=== PATIENT | male | born 1985 | race American Indian/Alaskan Native ===

== ENCOUNTER 2016-11-10 09:48 | Emergency (ER) | payer MEDICAID ==
[~2016-11-10 09:48] MED LIST: LISINOPRIL 10 MG TAB PO SCH
[2016-11-10 09:55] VITALS: TEMP 98.4
[2016-11-10] MEDS ORDERED: LISINOPRIL 20 MG TAB ONE (10:35)
--- NOTE | 2016-11-10 10:35 | EDPHY ---
H & P Time Seen by Provider: 11/10/16 09:56 HPI/ROS: CHIEF COMPLAINT: Medication refill, history of hypertension HISTORY OF PRESENT ILLNESS: 31-year-old male arrives via ambulance from [facility] where he was taken earlier today at approximately 3: 00 a.m.. He is in the emergency department for lisinopril 10 mg once daily refill. He has been out for approximately 6 days. He denies acute complaints. He denies: Chest pain, back pain, abdominal pain, nausea, vomiting, headache , urinary abnormality, hallucination, seizure PRIMARY CARE PROVIDER: REVIEW OF SYSTEMS: A ten point review of systems was performed and is negative with the exception of the items mentioned in the HPI PAST MEDICAL & SURGICAL HISTORY: Hypertension SOCIAL HISTORY: history of alcoholism. Receives the majority of his care at a [facility] near [place], [place] PHYSICAL EXAM (Prior to examination, patient consented to physical exam, hands were washed and my usual and customary physical exam procedures followed) 1) GENERAL: Well-developed, well-nourished, alert and oriented. Appears to be in no acute distress. 2) HEAD: Normocephalic, atraumatic 3) HEENT: Pupils equal, round, reactive to light bilaterally. Sclera anicteric. 4) NECK: Full range of motion, no meningeal signs. 5) LUNGS: Clear auscultation bilaterally, no wheezes, no rhonchi, no retractions. 6) HEART: Regular rate and rhythm, no murmur, no heave, no gallop. 7) ABDOMEN: No guarding, no rebound, no focal tenderness, 8) MUSCULOSKELETAL: Moving all extremities, no focal areas of tenderness, no obvious trauma. No peripheral edema or discoloration. 9) BACK: No CVA tenderness. 10) SKIN: No rash, no petechiae. 11) Psychiatric: Patient is oriented X 3, there is no agitation. DIFFERENTIAL DIAGNOSIS: in no particular include but limited to hypertension, hypertensive crisis, medication refill Smoking Status: Current some day smoker Constitutional: Initial Vital Signs Temperature (C) 36.9 C 11/10/16 09:51 Heart Rate 101 H 11/10/16 09:51 Respiratory Rate 16 11/10/16 09:51 Blood Pressure 172/109 H 11/10/16 09:51 O2 Sat (%) 97 11/10/16 09:51 O2 Delivery Mode Room Air Allergies/Adverse Reactions: No Known Allergies Allergy (Verified 09/08/16 03:54) Home Medications: Medication Instructions Recorded Multivitamins [Multivitamin (*)] 1 each PO DAILY 02/21/16 Aspirin [Aspirin 81mg (*)] 81 mg PO DAILY #0 tab.chew 02/23/16 Metoprolol Tartrate [Lopressor 25 25 mg PO BID #60 tab 02/23/16 mg (*)] Lisinopril 10 mg PO DAILY #30 tablet 11/10/16 MDM/Departure - [facility] ED Course/Re-evaluation: This patient is asymptomatic. He is in the emergency department for refill of his lisinopril 10 mg once daily. He has been given a 30 day supply of this and given [facility] follow-up information and strongly recommended he follow up and establish care at the [facility]. - Depart Disposition: Home, Routine, Self-Care Clinical Impression: Encounter for medication refill, History of hypertension in sibling Condition: Good Instructions: Hypertension (ED) Prescriptions: Lisinopril 10 mg PO DAILY #30 tablet Referrals: [facility] [Outside] - 1-2 days without fail
[2016-11-10] MEDS ORDERED: CHLORDIAZEPOXIDE 25MG PREPK#6 BTL TAKEHOME ONE (11:53)
[2016-11-10] MEDS ORDERED: chlordiazePOXIDE 25 MG CAP PO ONE (11:53)
[2016-11-10 12:05] VITALS: BP 163/99; PULSE 103; RESP 18; O2SAT 94
[2016-11-11] MEDS ORDERED: LISINOPRIL 10 MG TAB PO ONE (09:57)
== END 2016-11-10 12:41 | disposition home or self-care (01) ==
LOC: EDUNIT#
DX: Z76.0 Encounter for issue of repeat prescription (principal); I10 Essential (primary) hypertension; F17.200 Nicotine dependence, unspecified, uncomplicated; Z79.82 Long term (current) use of aspirin

== ENCOUNTER 2016-11-14 07:29 | Emergency (ER) | payer MEDICAID ==
--- NOTE | 2016-11-14 08:24 | EDPHY ---
H & P Time Seen by Provider: 11/14/16 08:15 HPI/ROS: CHIEF COMPLAINT: Alcohol intoxication. Limitations: Obtundation HISTORY OF PRESENT ILLNESS: The patient is a 31 year old male with history of alcohol abuse, presenting with alcohol intoxication. [facility] and this morning they could not wake him up so EMS was called. According to the paramedics, his blood sugar was 29 prior to arrival. No dextrose was given. The patient is well known to this ED for alcohol intoxication. He was brought in on an [facility] hold. REVIEW OF SYSTEMS: Unable to obtain Past Medical/Surgical History: Alcoholism Social History: Homeless, Heavy alcohol use. Smoking Status: Current some day smoker Physical Exam: General Appearance: Asleep and snoring, Groans to sternal rub Eyes: Disconjugate gaze, Pinpoint pupils ENT, Mouth: Mucous membranes moist Neck: Normal inspection Respiratory: Lungs are clear to auscultation Cardiovascular: Regular rate and rhythm Gastrointestinal: Abdomen is soft and non-tender Neurological: Obtunded, Groans to sternal rub Skin: Warm and dry Extremities: Normal inspection Psychiatric: Unable to assess Constitutional: Initial Vital Signs Temperature (C) 36.8 C 11/14/16 07:35 Heart Rate 84 11/14/16 07:35 Respiratory Rate 16 11/14/16 07:35 Blood Pressure 138/89 H 11/14/16 07:35 O2 Sat (%) 96 11/14/16 07:35 O2 Delivery Mode Room Air O2 (L/minute) 2 Allergies/Adverse Reactions: No Known Allergies Allergy (Verified 11/14/16 07:39) Home Medications: Medication Instructions Recorded Multivitamins [Multivitamin (*)] 1 each PO DAILY 02/21/16 Aspirin [Aspirin 81mg (*)] 81 mg PO DAILY #0 tab.chew 02/23/16 Metoprolol Tartrate [Lopressor 25 25 mg PO BID #60 tab 02/23/16 mg (*)] Lisinopril 10 mg PO DAILY #30 tablet 11/10/16 Medical Decision Making ED Course/Re-evaluation: Patient presents with alcohol intoxication. Repeat blood sugar on arrival is 119, so it is unclear whether he was actually hypoglycemic prior to arrival, since he did not receive glucose. Oxygen saturation while asleep is 86% on room air. Oxygen was placed and his repeat oxygen saturation was 96%. Eventually, this pt was able to walk with a steady gait and speech was normal. Sent to the [facility] via PD. - Data Points Laboratory Results: Laboratory Results 11/14/16 07:38 Departure - Departure Disposition: Home, Routine, Self-Care Clinical Impression: Alcohol intoxication Qualifiers: Complication of substance-induced condition: uncomplicated Qualifier Code: ( F10.120) Alcohol abuse with intoxication, uncomplicated Condition: Good Instructions: Alcohol Intoxication (ED), Abuse of Alcohol (ED) Referrals: [facility] [Outside] - As per Instructions Report Scribed for: Nohelia Shen Report Scribed by: Laura Gavin Date of Report: 11/14/16 Time of Report: 08:23 Physician Review and Approval Statement: 11/14/16 08:23 Portions of this note were transcribed by a medical editor. I personally performed the history, physical exam, and medical decision-making; and confirmed the accuracy of the information in the transcribed note.
[2016-11-14 08:37] LABS: ANION GAP 15 mEq/L (8-16); CALCIUM 8.2 mg/dL (8.5-10.4); CARBON DIOXIDE 25 mEq/l (22-31); CHLORIDE 109 mEq/L (97-110); CREATININE 1.1 mg/dL (0.7-1.3); GLOMERULAR FILTRATION RATE > 60; GLUCOSE 111 mg/dL (70-100); POTASSIUM 3.7 mEq/L (3.5-5.2); SODIUM 149 mEq/L (134-144)
[2016-11-14 09:24] LABS: ETHANOL SERUM 345 mg/dL (0-10)
[2016-11-14 11:46] VITALS: BP 108/60; PULSE 98; RESP 18; TEMP 98.1; O2SAT 93
== END 2016-11-14 12:29 | disposition home or self-care (01) ==
LOC: EDUNIT#
DX: F10.120 Alcohol abuse with intoxication, uncomplicated (principal); F17.200 Nicotine dependence, unspecified, uncomplicated; Z79.82 Long term (current) use of aspirin
CPT/HCPCS: 82947-QW; G0480

== ENCOUNTER 2016-11-21 00:40 | Emergency (ER) | payer MEDICAID ==
[2016-11-21 00:46] VITALS: RESP 16; TEMP 97.5
--- NOTE | 2016-11-21 01:02 | EDPHY ---
H & P Stated Complaint: DIFFICULT TO WAKE AT [facility] - Personal History Current Tetanus Diphtheria and Acellular Pertussis (TDAP): Unsure - Medical/Surgical History Hx Asthma: No Hx Chronic Respiratory Disease: No Hx Diabetes: No Hx Cardiac Disease: Yes Hx Renal Disease: No Hx Cirrhosis: No Hx Alcoholism: Yes Hx HIV/AIDS: No Hx Splenectomy or Spleen Trauma: No Other PMH: Atrial fibrillation/flutter, withdrawal seizures, alcoholism, tib fib fracture, kidney laceration, broken ribs and pneumo 2014. HTN - Social History Smoking Status: Current some day smoker HPI/ROS: CHIEF COMPLAINT: Difficult to wake HISTORY OF PRESENT ILLNESS: patient is an alcoholic who [facility], when someone felt that he was very difficult to awake. He is well known in this facility as he is seen frequently for alcohol intoxication. He denies any complaints of any kind. He is not providing any history but says he just wants to sleep. He will not answer any of my specific review of systems questions. Reportedly from staff to bystanders, he drinks heavily to the point that he desaturates when he falls asleep. When he awakes, his oxygenation is well within normal limits. No modifying factors or associated complaints obtainable from him at this time. REVIEW OF SYSTEMS: Ten systems reviewed and are negative unless otherwise noted in the HPI EXAMINATION General Appearance: Somnolent but awakes with minimal stimulus. odor of alcohol Head: normocephalic, atraumatic Eyes: Pupils equal and round, conjunctival injection that is mild. Will not cooperate with me to test EOMs ENT, Mouth: Mucous membranes moist Neck: Normal inspection, supple. Will not cooperate with range of motion testing Respiratory: Lungs are clear to auscultation. No consolidation. Cardiovascular: Regular rate and rhythm Gastrointestinal: Abdomen is soft and nontender Neurological: Alert to person. He will not answer my questions otherwise. No seizure activity noted Skin: Warm and dry, no rash Extremities: Nontender, no pedal edema DIFFERENTIAL DIAGNOSES: Including but not limited to acute alcohol intoxication, sleep apnea, somnolent hypoxia, alcoholism. MDM: Reported chronic alcoholic who desaturates when he falls asleep. Patient is usually waking to minimal verbal stimuli. When he awaits his oxygenation is well within normal limits. We are monitoring him closely as he has no other complaints. 0115 At this time, Dr. Riguzzi will assume care of the patient. Please see her note for final disposition. SUPERVISION: Patient was evaluated in conjunction with the supervising physician. Please see their note for details. (Marquis Durham) Constitutional: Initial Vital Signs Temperature (C) 36.4 C 11/21/16 00:43 Heart Rate 63 11/21/16 00:43 Respiratory Rate 16 11/21/16 00:43 Blood Pressure 134/92 H 11/21/16 00:43 O2 Sat (%) 96 11/21/16 00:43 O2 Delivery Mode Nasal Cannula O2 (L/minute) 2 Allergies/Adverse Reactions: No Known Allergies Allergy (Verified 11/14/16 07:39) Home Medications: Medication Instructions Recorded Multivitamins [Multivitamin (*)] 1 each PO DAILY 02/21/16 Aspirin [Aspirin 81mg (*)] 81 mg PO DAILY #0 tab.chew 02/23/16 Metoprolol Tartrate [Lopressor 25 25 mg PO BID #60 tab 02/23/16 mg (*)] Lisinopril 10 mg PO DAILY #30 tablet 11/10/16 Medical Decision Making ED Course/Re-evaluation: PHYSICIAN DOCUMENTATION: The patient was evaluated and managed by the Physician Brake Rider. My co- signature indicates that I have reviewed this chart and I agree with the findings and plan of care as documented. I am the secondary supervising physician. (Lauren De La Rosa) Departure - Departure Disposition: Home, Routine, Self-Care Clinical Impression: Acute alcohol intoxication, Chronic alcohol abuse, Hypoxia, sleep related Condition: Good Referrals: Patient,NotPresent [Unknown] - As per Instructions
[2016-11-21 06:25] VITALS: BP 132/78; PULSE 67; O2SAT 93
== END 2016-11-21 07:25 | disposition home or self-care (01) ==
LOC: EDUNIT#
DX: F10.129 Alcohol abuse with intoxication, unspecified (principal); G47.36 Sleep related hypoventilation in conditions classified elsewhere; I10 Essential (primary) hypertension; F17.200 Nicotine dependence, unspecified, uncomplicated; Z79.82 Long term (current) use of aspirin

== ENCOUNTER 2016-11-24 02:48 | Emergency (ER) | payer MEDICAID ==
--- NOTE | 2016-11-24 02:55 | EDPHY ---
H & P HPI/ROS: HPI CHIEF COMPLAINT: Alcohol intoxication HISTORY OF PRESENT ILLNESS: this patient is a 31-year-old male presents to the emergency room by EMS do sound intoxicated walking around the street in the cold. Very familiar with this patient is often in the emergency room he does have a history of alcoholism and alcohol withdrawal he tells me tonight he has been drinking large amount of vodka. He does time he feels intoxicated. EMS make contact with the patient as he was walking around the streets yelling. No reported trauma. Upon arrival here in the emergency room he does smell of alcohol use slurring his speech he is resting comfortably no complaints. Past Medical History:Alcohol withdrawal, AFib, low-sodium, hypokalemia Social History: Daily use of alcohol, homeless Family History: noncontributory ROS REVIEW OF SYSTEMS: A comprehensive 10 point review of systems is otherwise negative aside from elements mentioned in the history of present illness. Exam Constitutional appears well nontoxic, intoxicated with alcohol, triage nursing summary reviewed, vital signs reviewed, awake/alert. Eyes normal conjunctivae and sclera, EOMI, PERRLA. HENT normal inspection, atraumatic, moist mucus membranes, no epistaxis, neck supple/ no meningismus, no raccoon eyes. Respiratory clear to auscultation bilaterally, normal breath sounds, no respiratory distress, no wheezing. Cardiovascular rate normal, regular rhythm, no murmur, no edema, distal pulses normal. Gastrointestinal soft, non-tender, no rebound, no guarding, normal bowel sounds, no distension, no pulsatile mass. Genitourinary no CVA tenderness. Musculoskeletal no midline vertebral tenderness, full range of motion, no calf swelling, no tenderness of extremities, no meningismus, good pulses, neurovascularly intact. Skin pink, warm, & dry, no rash, skin atraumatic. Neurologic slurring speech awake, alert and oriented x 3, AAOx3, moves all 4 extremities equally, motor intact, sensory intact, CN II-XII intact, normal cerebellar, normal vision Psychiatric normal mood/affect. Heme/Lymph/Immune no lymphadenopathy. Differential Diagnosis: Includes but is not limited to in a particular order acute alcohol intoxication, cold exposure, dehydration Medical Decision Making: This patient appears well nontoxic no acute distress resting comfortably he will have a breath alcohol and we will monitor for sobriety. No evidence of trauma on exam. Re-evaluation: 0307: breath alcohol at this time 393. 0552: re-examination at this time he is sleeping or resting comfortably once awoke he has no complaints. He will be discharged to the [facility]. He is clinically sober stable gait and no focal complaints. He is agreeable for disposition to the [facility] Source: Patient, EMS - Medical/Surgical History Hx Asthma: No Hx Chronic Respiratory Disease: No Hx Diabetes: No Hx Cardiac Disease: Yes Hx Renal Disease: No Hx Cirrhosis: No Hx Alcoholism: Yes Hx HIV/AIDS: No Hx Splenectomy or Spleen Trauma: No Other PMH: Atrial fibrillation/flutter, withdrawal seizures, alcoholism, tib fib fracture, kidney laceration, broken ribs and pneumo 2014. HTN - Social History Smoking Status: Current some day smoker Constitutional: Initial Vital Signs Temperature (C) 36.5 C 11/24/16 02:56 Heart Rate 73 11/24/16 02:56 Respiratory Rate 16 11/24/16 02:56 Blood Pressure 116/75 11/24/16 02:56 O2 Sat (%) 95 11/24/16 02:56 O2 Delivery Mode Nasal Cannula O2 (L/minute) 2 Allergies/Adverse Reactions: No Known Allergies Allergy (Verified 11/24/16 02:58) Home Medications: Medication Instructions Recorded Multivitamins [Multivitamin (*)] 1 each PO DAILY 02/21/16 Aspirin [Aspirin 81mg (*)] 81 mg PO DAILY #0 tab.chew 02/23/16 Metoprolol Tartrate [Lopressor 25 25 mg PO BID #60 tab 02/23/16 mg (*)] Lisinopril 10 mg PO DAILY #30 tablet 11/10/16 Departure - Departure Disposition: Home, Routine, Self-Care Clinical Impression: Alcohol intoxication Qualifiers: Complication of substance-induced condition: uncomplicated Qualifier Code: ( F10.120) Alcohol abuse with intoxication, uncomplicated Condition: Good Instructions: Abuse of Alcohol (ED), Alcohol Intoxication (ED) Referrals: NONE *PRIMARY CARE P,. [Primary Care Provider] - As per Instructions
[2016-11-24 03:09] VITALS: TEMP 97.7
[2016-11-24 06:25] VITALS: BP 102/68; PULSE 84; RESP 16; O2SAT 93
== END 2016-11-24 07:35 | disposition home or self-care (01) ==
LOC: EDUNIT#
DX: F10.120 Alcohol abuse with intoxication, uncomplicated (principal); I10 Essential (primary) hypertension; F17.200 Nicotine dependence, unspecified, uncomplicated; Z79.82 Long term (current) use of aspirin

== ENCOUNTER 2016-11-26 23:59 | Emergency (ER) | payer MEDICAID ==
[2016-11-27 00:16] VITALS: RESP 16
--- NOTE | 2016-11-27 00:44 | EDPHY ---
H & P Stated Complaint: DIFFICULT TO WAKE AT [facility], LOW SAT ON RA Time Seen by Provider: 11/27/16 00:40 HPI/ROS: HPI The patient presents with alcohol intoxication brought in by ambulance from the [facility] because he was difficult to arouse with a low oxygen saturation. He was seen here just 2 days ago for similar and I saw him last week with a similar presentation. The patient denies any current complaints.. REVIEW OF SYSTEMS Constitutional: No fever, no chills. Eyes: No discharge. ENT: No sore throat. Cardiovascular: No chest pain, no palpitations. Respiratory: No cough, no shortness of breath. Gastrointestinal: No abdominal pain, no vomiting. Genitourinary: No hematuria. Musculoskeletal: No back pain. Skin: No rashes. Neurological: No headache. PMHx: Alcohol abuse, history of atrial fibrillation Soc Hx: alcohol PHYSICAL General Appearance: Apparently intoxicated Eyes: Pupils equal and round no pallor or injection ENT, Mouth: Mucous membranes moist Respiratory: There are no retractions, lungs are clear to auscultation Cardiovascular: Regular rate and rhythm Gastrointestinal: Abdomen is soft and non-tender, no masses, bowel sounds normal Neurological: A&O, moves all extremities Skin: Warm and dry, no rashes Musculoskeletal: Neck is supple non tender Extremities: symmetrical, full range of motion Psychiatric: No agitation Source: Patient Exam Limitations: No limitations - Personal History Current Tetanus Diphtheria and Acellular Pertussis (TDAP): Unsure - Medical/Surgical History Hx Asthma: No Hx Chronic Respiratory Disease: No Hx Diabetes: No Hx Cardiac Disease: Yes Hx Renal Disease: No Hx Cirrhosis: No Hx Alcoholism: Yes Hx HIV/AIDS: No Hx Splenectomy or Spleen Trauma: No Other PMH: Atrial fibrillation/flutter, withdrawal seizures, alcoholism, tib fib fracture, kidney laceration, broken ribs and pneumo 2014. HTN - Social History Smoking Status: Current some day smoker Constitutional: Initial Vital Signs Temperature (C) 36.7 C 11/27/16 00:00 Heart Rate 101 H 11/27/16 00:00 Respiratory Rate 16 11/27/16 00:00 Blood Pressure 137/88 H 11/27/16 00:00 O2 Sat (%) 90 L 11/27/16 00:00 O2 Delivery Mode Room Air O2 (L/minute) 2 Allergies/Adverse Reactions: No Known Allergies Allergy (Verified 11/24/16 02:58) Home Medications: Medication Instructions Recorded Multivitamins [Multivitamin (*)] 1 each PO DAILY 02/21/16 Aspirin [Aspirin 81mg (*)] 81 mg PO DAILY #0 tab.chew 02/23/16 Metoprolol Tartrate [Lopressor 25 25 mg PO BID #60 tab 02/23/16 mg (*)] Lisinopril 10 mg PO DAILY #30 tablet 11/10/16 Medical Decision Making ED Course/Re-evaluation: 12:40 a.m.- Initial patient encounter. He is sleeping heavily in a hallway bed on the monitor with supplemental nasal cannula currently. We will continue to monitor him. 2:00 a.m.- Patient is still sleeping soundly. We will continue to monitor. 5:20 a.m.- The patient is now more awake and alert. He is able to ambulate. [facility]. Differential Diagnosis: This is a 31-year-old male with history of chronic alcohol abuse, frequent ER visits who is coming in from the [facility] for low oxygen saturations and difficult to arouse state. He has had several similar presentations and likely has some FREDI contributing to his hypoxia. I doubt pneumonia or bronchitis, however I will re-evaluate him if his saturations do not improve as he metabolize his alcohol, further evaluation will occur. Departure - Departure Disposition: Home, Routine, Self-Care Clinical Impression: Alcohol intoxication Condition: Good Instructions: Alcohol Intoxication (ED) Referrals: [facility] [Outside] - As per Instructions
[2016-11-27 02:00] VITALS: O2SAT 92
[2016-11-27 05:41] VITALS: BP 144/74; PULSE 81; TEMP 97.9
== END 2016-11-27 05:40 | disposition home or self-care (01) ==
LOC: EDUNIT#
DX: F10.129 Alcohol abuse with intoxication, unspecified (principal); I10 Essential (primary) hypertension; F17.200 Nicotine dependence, unspecified, uncomplicated; Z79.82 Long term (current) use of aspirin

== ENCOUNTER 2017-01-13 13:54 | Emergency (ER) | payer MEDICAID ==
--- NOTE | 2017-01-13 14:00 | EDPHY ---
H & P Time Seen by Provider: 01/13/17 13:56 HPI/ROS: CHIEF COMPLAINT: Suspected alcohol intoxication HISTORY OF PRESENT ILLNESS: 31-year-old homeless male arrives via ambulance [facility] an [facility] hold after he was found sleeping on the side of the road. No reports of trauma or fall. Smells of alcohol. According to law enforcement the patient has been sent to the [facility] for the past 2 days. Patient has no complaints of pain or discomfort. No seizure. No hallucination. REVIEW OF SYSTEMS: A ten point review of systems was performed and is negative with the exception of the items mentioned in the HPI PAST MEDICAL & SURGICAL HISTORY: alcohol abuse history SOCIAL HISTORY:positive alcohol use PHYSICAL EXAM (Prior to examination, patient consented to physical exam, hands were washed and my usual and customary physical exam procedures followed) 1) GENERAL: poorly kept, smells of alcohol 2) HEAD: Normocephalic, atraumatic 3) HEENT: Pupils equal, round, reactive to light bilaterally. Sclera anicteric. No oral trauma 4) NECK: Full range of motion, no meningeal signs. 5) LUNGS: Clear auscultation bilaterally, no wheezes, no rhonchi, no retractions. 6) HEART: Regular rate and rhythm, no murmur, no heave, no gallop. 7) ABDOMEN: No guarding, no rebound, no focal tenderness, 8) MUSCULOSKELETAL: Moving all extremities, no focal areas of tenderness, no obvious trauma. No peripheral edema or discoloration. 9) BACK: Nno midline vertebral tenderness, no fluctuance, no step-off, no obvious trauma, no visual or palpable abnormality. 10) SKIN: No rash, no petechiae. 11) Psychiatric: Patient is oriented X 3, there is no agitation. DIFFERENTIAL DIAGNOSIS: no particular include but not limited to acute alcohol intoxication, delirium tremens, alcohol withdrawal - Medical/Surgical History Hx Asthma: No Hx Chronic Respiratory Disease: No Hx Diabetes: No Hx Cardiac Disease: Yes Hx Renal Disease: No Hx Cirrhosis: No Hx Alcoholism: Yes Hx HIV/AIDS: No Hx Splenectomy or Spleen Trauma: No Other PMH: Atrial fibrillation/flutter, withdrawal seizures, alcoholism, tib fib fracture, kidney laceration, broken ribs and pneumo 2014. HTN - Social History Smoking Status: Current some day smoker Constitutional: Initial Vital Signs Temperature (C) 36.6 C 01/13/17 14:00 Heart Rate 77 01/13/17 14:00 Respiratory Rate 16 01/13/17 14:00 Blood Pressure 123/71 H 01/13/17 14:00 O2 Sat (%) 97 01/13/17 14:00 O2 Delivery Mode Nasal Cannula O2 (L/minute) 4 Allergies/Adverse Reactions: No Known Allergies Allergy (Verified 11/24/16 02:58) Home Medications: Medication Instructions Recorded Multivitamins [Multivitamin (*)] 1 each PO DAILY 02/21/16 Aspirin [Aspirin 81mg (*)] 81 mg PO DAILY #0 tab.chew 02/23/16 Metoprolol Tartrate [Lopressor 25 25 mg PO BID #60 tab 02/23/16 mg (*)] Lisinopril 10 mg PO DAILY #30 tablet 11/10/16 Medical Decision Making ED Course/Re-evaluation: 6:05 p.m.: At this time the patient is ambulatory without assistance stable steady gait clear speech pattern awake alert oriented person place time events. [facility] - Data Points Laboratory Results: 01/13/17 14:00 Ethyl Alcohol 484 mg/dL H* mg/dL (0-10) Departure - Departure Disposition: Home, Routine, Self-Care Clinical Impression: Alcohol intoxication Qualifiers: Complication of substance-induced condition: uncomplicated Qualified Code(s): F10.120 - Alcohol abuse with intoxication, uncomplicated Condition: Good Instructions: Alcohol Intoxication (ED) Referrals: [facility] [Outside] - 1 day without fail
[2017-01-13 14:07] VITALS: RESP 16; TEMP 97.9
[2017-01-13 14:42] LABS: ETHANOL SERUM 484 mg/dL (0-10)
[2017-01-13 18:18] VITALS: BP 115/75; PULSE 74; O2SAT 92
== END 2017-01-13 18:56 | disposition home or self-care (01) ==
LOC: EDUNIT#
DX: F10.120 Alcohol abuse with intoxication, uncomplicated (principal); I10 Essential (primary) hypertension; F17.200 Nicotine dependence, unspecified, uncomplicated; Z79.82 Long term (current) use of aspirin
CPT/HCPCS: G0480

== ENCOUNTER 2017-02-04 16:17 | Emergency (ER) | payer MEDICAID ==
[2017-02-04 16:30] LABS: % IMMATURE GRANULYOCYTES 1.6 % (0.0-1.1); ADD DIFF? NO; ADD MORPH? NO; ADD SCAN? NO; ATYPICAL LYMPHOCYTE FLAG 20 (0-99); FRAGMENT RBC FLAG 0 (0-99); HEMATOCRIT 45.8 % (40.0-51.0); HEMOGLOBIN 14.9 g/dL (13.7-17.5); LEFT SHIFT FLG 10 (0-99); LIPEMIA HEMOLYSIS FLAG 80 (0-99); MEAN CELL HEMOGLOBIN 30.2 pg (27.9-34.1); MEAN CELL HEMOGLOBIN CONCENTR. 32.5 g/dL (32.4-36.7); MEAN CELL VOLUME 92.9 fL (81.5-99.8); MEAN PLATELET VOLUME 9.8 fL (8.7-11.7); PLATELET CLUMPS FLAG 10 (0-99); PLATELET COUNT 262 10^3/uL (150-400); RED BLOOD CELL COUNT 4.93 10^6/uL (4.40-6.38)
--- NOTE | 2017-02-04 16:38 | CPEKG ---
Heart Rate: 67 RR Interval: 896 P-R Interval: 172 QRSD Interval: 100 QT Interval: 408 QTC Interval: 431 P [place]: 50 QRS [place]: 12 T Wave [place]: 17 EKG Severity - ABNORMAL ECG - EKG Impression: SINUS RHYTHM EKG Impression: ST ELEVATION SUGGESTS PERICARDITIS Electronically Signed By: Kenton Luis 04-Feb-2017 21:22:23
[2017-02-04] MEDS ORDERED: NS 1,000 ML IV ONE ×2 (16:44→17:42)
[2017-02-04 16:48] LABS: HEMATOCRIT 45.8 % (40.0-51.0)
[2017-02-04 16:49] LABS: ANION GAP 15 mEq/L (8-16); CARBON DIOXIDE 23 mEq/l (22-31); CHLORIDE 111 mEq/L (97-110); CREATININE 0.8 mg/dL (0.7-1.3); GLOMERULAR FILTRATION RATE > 60; GLUCOSE 89 mg/dL (70-100); MAGNESIUM 2.2 mg/dL (1.6-2.3); POTASSIUM 4.2 mEq/L (3.5-5.2); SODIUM 149 mEq/L (134-144)
--- NOTE | 2017-02-04 16:50 | EDPHY ---
H & P Stated Complaint: ETOH Source: EMS, Old records Exam Limitations: Intoxication - Personal History Current Tetanus Diphtheria and Acellular Pertussis (TDAP): Yes - Medical/Surgical History Hx Asthma: No Hx Chronic Respiratory Disease: No Hx Diabetes: No Hx Cardiac Disease: Yes Hx Renal Disease: No Hx Cirrhosis: No Hx Alcoholism: Yes Hx HIV/AIDS: No Hx Splenectomy or Spleen Trauma: No Other PMH: Atrial fibrillation/flutter, withdrawal seizures, alcoholism, tib fib fracture, kidney laceration, broken ribs and pneumo 2014. HTN - Family History Significant Family History: Other (Unknown) - Social History Smoking Status: Current some day smoker Alcohol Use: Heavy Drug Use: Other (Unknown) Time Seen by Provider: 02/04/17 16:25 HPI/ROS: HPI: 31-year-old male presents to emergency department brought in by EMS found down 30 minutes prior to arrival. 0.4 mg Narcan was given in the field with no response. Patient responsive to painful stimulus only. This homeless gentleman is well known to the emergency department. Past medical history significant for atrial fib and flutter, alcohol abuse, ETOH withdrawal, ETOH withdrawal seizure, kidney laceration, broken ribs, pneumothorax, hypertension. Unable to perform the duration of HPI due to his mental status. ROS: Unable to perform due to mental status (Mariam Mistry) - Social History Additional Social History: Transient (Mariam Mistry) - Physical Exam Exam: Vital signs stable, reviewed by me General: Awakens to painful stimulus only. Head: Atraumatic, normalocephalic Face: Atraumatic EENT: PERRLA. Left pupil 5+, right pupil 3+. EOMI. No papilledema. no conjunctival injection or hemorrhage. TMs intact, translucent. No evidence of bleeding or otorrhea. Nasal septum midline, nasal mucosa pink. no evidence of drainage. Uvula midline, pharynx without redness. Neck: Atraumatic, no midline tenderness Resp: Breathing unlabored. Lungs clear to auscultation bilaterally. CV: HRR. S1S2. No MRG. GI: Abdomen soft, nontender. Bowel sounds normoactive and positive x4 quadrants. Back: No midline thoracic or lumbar tenderness. No CVA tenderness. Skin: Warm, dry. No abrasions or lacerations noted. Capillary refill less than 2 seconds. Musculoskeletal: Moves all extremities Neuro: Face symmetric, lethargic, awakens to painful stimulus only briefly. Nonverbal. Extremities: Able to move all extremities, Full range of motion. (Mariam Mistry) Constitutional: Initial Vital Signs Temperature (C) 36.3 C 02/04/17 16:17 Heart Rate 72 02/04/17 16:17 Respiratory Rate 20 02/04/17 16:17 Blood Pressure 112/65 02/04/17 16:17 O2 Sat (%) 100 02/04/17 16:17 O2 Delivery Mode Nasal Cannula O2 (L/minute) 3 Allergies/Adverse Reactions: No Known Allergies Allergy (Verified 02/04/17 16:23) Home Medications: Medication Instructions Recorded Multivitamins [Multivitamin (*)] 1 each PO DAILY 02/21/16 Aspirin [Aspirin 81mg (*)] 81 mg PO DAILY #0 tab.chew 02/23/16 Metoprolol Tartrate [Lopressor 25 25 mg PO BID #60 tab 02/23/16 mg (*)] Lisinopril 10 mg PO DAILY #30 tablet 11/10/16 Medical Decision Making - Diagnostics EKG Interpretation: EKG interpreted by me shows normal sinus rhythm with normal interval. There is left axis deviation. There is diffuse ST elevation suggestive of pericarditis. No arrhythmia. Rate 67 (Janelle,Kenton S) Imaging: Noncontrast Head CT and CT Cervical Spine 1707 hours: Indication: Altered mental status, found down History: Altered mental status. Found down. Possible heroin overdose Technique: Standard noncontrast head CT protocol utilizing axial images was acquired through the calvarium. Images were reconstructed in multiple planes as well. Spiral imaging was obtained through the cervical spine. Images were reconstructed at 1.25 mm slice thickness. Images were reconstructed in multiple planes. Dose reduction techniques were utilized. Findings: Comparison to prior study from 01/15/2017. CT Head: The cerebral parenchyma has a normal attenuation throughout. There is stable mild diffuse involutional change possibly from underlying alcohol abuse. There are no masses , intracranial hemorrhage, subdural collections, or evidence of recent cerebral infarction. The bones are unremarkable. The paranasal sinuses are clear. CT Cervical Spine: Vertebral body heights are well maintained. There are no subluxations. No fractures are seen. Facet joints are normal bilaterally. Paravertebral soft tissues demonstrate no significant abnormality. Impression: 1. No acute intracranial abnormality seen. 2. Normal CT cervical spine. Findings discussed with Mariam Mistry NP at 17:31 hour, 02/04/2017. (Mariam Mistry) ED Course/Re-evaluation: 1630:31-year-old male brought into ED by EMS found down with altered mental status. 0.4 mg Narcan given the field without results. Patient's vitals are stable. An EKG shows a sinus rhythm rate 67 with normal intervals, no axis deviation, diffuse ST elevation suspicious for pericarditis. Sed rate and troponin are pending. Labs pending. CT head and neck pending. Echo pending. Alcohol level pending. Patient is lethargic and awakens to voice only however he does turn over in bed independently, moving all extremities. There are no signs of trauma. 1745: CT head and neck are negative for acute findings. Sed rate 7. Troponin negative. Hypernatremic at 149. CO2 23, HGB 15, potassium 4.2, Mag 2.2. 2 L normal saline given. Awaiting cardiac echo. Plan to admit to [facility] once he is stable and ambulating independently. (Mariam Mistry) Patient is seen by me at 5:20 p.m.--patient is currently sleeping secondary to alcohol intoxication. I reviewed the chart and see that the patient receive Narcan for possible heroin overdose without significant change. Patient's blood alcohol is 384. Troponin is normal. Echocardiogram pending. His sed rate is normal at 7. Physical exam listening the patient's heart and lungs this appears to be normal. I do not hear a friction rub. Re-evaluation at 7:45 p.m. patient state stable but sleeping and not arousable. 8:[address] Ordonez who will read the echo and call me back with result Further discussion with Dr. Garzon who read the echo as normal 8:30 p.m. patient is awake and ambulatory and without complaints. He refuses to go to the [facility] and [facility] to go to the [facility] (Kenton Luis) Differential Diagnosis: Differential diagnosis includes but is not limited to alcohol intoxication, alcohol withdrawal, alcohol withdrawal seizure, polysubstance abuse, head injury , neck injury, acute coronary syndrome, metabolic derangement, stroke (Mariam Mistry) - Data Points Laboratory Results: Laboratory Results 02/04/17 16:25 02/04/17 16:25 02/04/17 02/04/17 02/04/17 16:31 16:25 16:25 WBC 6.27 10^3/uL 10^3/uL (3.80-9.50) RBC 4.93 10^6/uL 10^6/uL (4.40-6.38) Hgb 14.9 g/dL g/dL (13.7-17.5) POC Hgb 15.3 gm/dL gm/dL (14.5-17.3) Hct 45.8 % % (40.0-51.0) POC Hct 45 % % (42.8-50.6) MCV 92.9 fL fL (81.5-99.8) MCH 30.2 pg pg (27.9-34.1) MCHC 32.5 g/dL g/dL (32.4-36.7) RDW 14.0 % % (11.5-15.2) Plt Count 262 10^3/uL 10^3/uL (150-400) MPV 9.8 fL fL (8.7-11.7) Neut % (Auto) 41.9 % % (39.3-74.2) Lymph % (Auto) 44.2 % % (15.0-45.0) [place] % (Auto) 9.3 % % (4.5-13.0) Eos % (Auto) 2.2 % % (0.6-7.6) Baso % (Auto) 0.8 % % (0.3-1.7) Nucleat RBC Rel Count 0.0 % % (0.0-0.2) Absolute Neuts (auto) 2.63 10^3/uL 10^3/uL (1.70-6.50) Absolute Lymphs (auto) 2.77 10^3/uL 10^3/uL (1.00-3.00) Absolute Monos (auto) 0.58 10^3/uL 10^3/uL (0.30-0.80) Absolute Eos (auto) 0.14 10^3/uL 10^3/uL (0.03-0.40) Absolute Basos (auto) 0.05 10^3/uL 10^3/uL (0.02-0.10) Absolute Nucleated RBC 0.00 10^3/uL 10^3/uL (0-0.01) Immature Gran % 1.6 % H % (0.0-1.1) Immature Gran # 0.10 10^3/uL 10^3/uL (0.00-0.10) ESR POC Sodium 148 mEq/L H mEq/L (134-144) Sodium 149 mEq/L H mEq/L (134-144) POC Potassium 3.6 mEq/L mEq/L (3.3-5.0) Potassium 4.2 mEq/L mEq/L (3.5-5.2) POC Chloride 110 mEq/L H mEq/L (96-108) Chloride 111 mEq/L H mEq/L (97-110) Carbon Dioxide 23 mEq/l mEq/l (22-31) Anion Gap 15 mEq/L mEq/L (8-16) POC BUN 8 mg/dL mg/dL (7-23) BUN 10 mg/dL mg/dL (7-23) Creatinine 0.8 mg/dL mg/dL (0.7-1.3) POC Creatinine 1.1 mg/dL mg/dL (0.8-1.5) Estimated GFR > 60 Glucose 89 mg/dL mg/dL (70-100) POC Glucose 94 mg/dL mg/dL (70-100) Calcium 9.0 mg/dL mg/dL (8.5-10.4) Magnesium 2.2 mg/dL mg/dL (1.6-2.3) Troponin I Ethyl Alcohol 384 mg/dL H mg/dL (0-10) 02/04/17 02/04/17 16:20 16:20 WBC RBC Hgb POC Hgb Hct 45.8 % % (40.0-51.0) POC Hct MCV MCH MCHC RDW Plt Count MPV Neut % (Auto) Lymph % (Auto) [place] % (Auto) Eos % (Auto) Baso % (Auto) Nucleat RBC Rel Count Absolute Neuts (auto) Absolute Lymphs (auto) Absolute Monos (auto) Absolute Eos (auto) Absolute Basos (auto) Absolute Nucleated RBC Immature Gran % Immature Gran # ESR 7 MM/HR MM/HR (0-15) POC Sodium Sodium POC Potassium Potassium POC Chloride Chloride Carbon Dioxide Anion Gap POC BUN BUN Creatinine POC Creatinine Estimated GFR Glucose POC Glucose Calcium Magnesium Troponin I < 0.012 ng/mL ng/mL (0-0.034) Ethyl Alcohol Medications Given: Discontinued Medications Sodium Chloride (Ns) 1,000 mls @ 0 mls/hr IV ONCE ONE PRN Reason: Wide Open Stop: 02/04/17 16:45 Last Admin: 02/04/17 16:48 Dose: 1,000 mls Sodium Chloride (Ns) 1,000 mls @ 0 mls/hr IV ONCE ONE PRN Reason: Wide Open Stop: 02/04/17 17:43 Last Admin: 02/04/17 17:48 Dose: 1,000 mls Point of Care Test Results: 02/04/17 16:31 POC Sodium 148 H POC Potassium 3.6 POC Chloride 110 H POC BUN 8 POC Creatinine 1.1 POC Glucose 94 Departure - Departure Disposition: Home, Routine, Self-Care Clinical Impression: Alcohol intoxication Qualifiers: Complication of substance-induced condition: uncomplicated Qualified Code(s): F10.120 - Alcohol abuse with intoxication, uncomplicated Condition: Good Instructions: Alcohol Intoxication (ED), Abuse of Alcohol (ED), Alcohol Dependence (ED) Additional Instructions: Plan: Drink alcohol responsibly Follow up with [facility] on Wednesday for recheck without fail-- When you call to schedule appointment, please let the office know you are an " ER follow up" appointment" Stop drinking Referrals: Patient,NotPresent [Unknown] - As per Instructions [facility],. [Clinic] - As per Instructions
[2017-02-04 17:00] LABS: ETHANOL SERUM 384 mg/dL (0-10)
--- NOTE | 2017-02-04 20:17 | ECHO ---
[id number] + + [address] : : [place] [address] : : [phone] + + Adult Echocardiographic Report + + :Name: BELLO BENAVIDES Study Date: 02/04/2017 06:30 PM : : Hospital Admission Number: [id number] : :: 1985 Gender: Male : :Age: 31 yrs Race: LINNETTE,CATARINO,AVERY : :Reason For Study: ? pericarditis : :History: ekg changes : + + MMode/2D Measurements \T\ Calculations IVSd: 0.72 cm LVIDd: 4.1 cm FS: 38.1 % Ao root diam: 2.8 cm LVPWd: 1.0 cm LVIDs: 2.5 cm EDV(Teich): 72.9 ml ESV(Teich): 22.8 ml EF(Teich): 68.8 % Normal Measurement Values: + + :LVIDd (3.5-5.7cm) IVSd (0.6-1.1cm) LVPWd (0.6-1.1cm) Aortic Root (2.0-3.7cm)Left Atrium (1.5-4.0cm): :LV Vol(d) (76-115ml) LV Vol(s) (29-48ml) Ejec Fraction (50-65%)PV Rm (0.6- 1.2m/s) TV Rm (0.4-1.0m/s) : :MV E Rm (0.8-1.0m/s)MV A Rm (0.3-1.0m/s)LVOT Rm (0.7-1.2m/s) Asc Ao Rm ( 0.9-1.8m/s) : + + Doppler Measurements \T\ Calculations MV E max rm: Ao V2 max: LV V1 max: PA V2 max: 75.5 cm/sec 126.0 cm/sec 66.6 cm/sec 66.9 cm/sec MV A max rm: Ao max P.4 mmHgLV V1 max PG: PA max P.5 cm/sec 1.8 mmHg 1.8 mmHg MV E/A: 1.9 TR max rm: 241.0 cm/sec TR max P.2 mmHg RAP systole: 5.0 mmHg RVSP(TR): 28.2 mmHg Left Ventricle The left ventricle is normal in size and function. There is normal left ventricular wall thickness. Ejection Fraction = 65-70%. No regional wall motion abnormalities noted. Right Ventricle The right ventricle is normal in size and function. Atria The left atrial size is normal. Right atrial size is normal. Mitral Valve The mitral valve is normal in structure and function. There is no mitral valve stenosis. There is no mitral regurgitation noted. Tricuspid Valve The tricuspid valve is normal in structure and function. There is no tricuspid stenosis. There is mild to moderate tricuspid regurgitation. Right ventricular systolic pressure is 28mmHg. Aortic Valve The aortic valve is normal in structure and function. There is no aortic stenosis. There is no aortic insufficiency. Great Vessels The aortic root is not well visualized. Pericardium/Pleural There is a fat pad or trivial pericardial effusion. Conclusion A two-dimensional transthoracic echocardiogram with M-mode and Doppler was performed. The study was technically difficult. The left ventricle is normal in size and function. Ejection Fraction = 65-70%. There is mild to moderate tricuspid regurgitation. Final Reading Physician: Yenni Erazo signed on 02/04/2017 08:16 PM Ordering Physician: Mariam Mistry Performed By: Corinne Maya
[2017-02-04 20:32] VITALS: BP 123/83; PULSE 88; RESP 16; TEMP 98.6; O2SAT 94
== END 2017-02-04 20:35 | disposition home or self-care (01) ==
LOC: EDUNIT#
DX: F10.120 Alcohol abuse with intoxication, uncomplicated (principal); I10 Essential (primary) hypertension; F17.200 Nicotine dependence, unspecified, uncomplicated; Z79.82 Long term (current) use of aspirin
CPT/HCPCS: 82947-QW; G0480

== ENCOUNTER 2017-02-20 01:42 | Emergency (ER) | payer MEDICAID ==
--- NOTE | 2017-02-20 05:44 | EDPHY ---
H & P Stated Complaint: found down, + etoh, pt states that he has been having seizures today - Personal History Current Tetanus Diphtheria and Acellular Pertussis (TDAP): Yes - Medical/Surgical History Hx Asthma: No Hx Chronic Respiratory Disease: No Hx Diabetes: No Hx Cardiac Disease: Yes Hx Renal Disease: No Hx Cirrhosis: No Hx Alcoholism: Yes Hx HIV/AIDS: No Hx Splenectomy or Spleen Trauma: No Other PMH: Atrial fibrillation/flutter, withdrawal seizures, alcoholism, tib fib fracture, kidney laceration, broken ribs and pneumo 2014. HTN - Social History Smoking Status: Current some day smoker Time Seen by Provider: 02/20/17 02:04 HPI/ROS: Chief Complaint: Found down, alcohol intoxication HPI: 31-year-old male well known to this emergency depart with a history of homelessness and chronic alcoholism who is noncompliant with medications. Patient was found down tonight. Was rousable in stating he has been drinking alcohol. Patient denies headache. Did not fall or hit his head. No nausea or vomiting. Further history is unobtainable as the patient is drifting off to sleep Unobtainable secondary to the patient's intoxication PMH: Alcoholism Alcohol withdrawal seizures no in atrial fibrillation Rib fractures Pneumothorax Hypertension Social History: Positive for smoking, daily heavy alcohol, Family History: non-contributory Physical Exam: Gen: Sleeping, responding to noxious stimuli, maintaining airway, smells strongly of alcohol HEENT: Head is atraumatic Nose: no rhinorrhea Eyes: PERRLA, EOMI Mouth: Moist mucosa Neck: Supple, no JVD Chest: nontender, lungs clear to auscultation Heart: S1, S2 normal, no murmur Abd: Soft, non-tender, no guarding Ext: no edema, non-tender Skin: no rash Neuro: CN II-XII intact, Sensation grossly intact, Strength 5/5 in bilateral upper and lower extremities (Curt Aguila) Constitutional: Initial Vital Signs Temperature (C) 36.4 C 02/20/17 01:42 Heart Rate 76 02/20/17 01:42 Respiratory Rate 14 02/20/17 01:42 Blood Pressure 133/90 H 02/20/17 01:42 O2 Sat (%) 93 02/20/17 01:42 O2 Delivery Mode Room Air Allergies/Adverse Reactions: No Known Allergies Allergy (Verified 02/04/17 16:23) Home Medications: Medication Instructions Recorded Multivitamins [Multivitamin (*)] 1 each PO DAILY 02/21/16 Aspirin [Aspirin 81mg (*)] 81 mg PO DAILY #0 tab.chew 02/23/16 Metoprolol Tartrate [Lopressor 25 25 mg PO BID #60 tab 02/23/16 mg (*)] Lisinopril 10 mg PO DAILY #30 tablet 11/10/16 Medical Decision Making ED Course/Re-evaluation: 0700 patient signed out to Dr. Cummings pending ability to ambulate and no longer clinically intoxicated. (Curt Aguila) 0700: I assumed care of this patient from Dr. Aguila at shift change. 0843: Patient ambulated well throughout the emergency room to the bathroom. He will be discharged. (Tiffanie Cummings) Departure - Departure Disposition: Home, Routine, Self-Care Clinical Impression: Alcohol intoxication Condition: Good Instructions: Alcohol Intoxication (ED), Alcohol Dependence (ED) Additional Instructions: Please see medical help to decrease your alcohol use. Referrals: NONE *PRIMARY CARE P,. [Primary Care Provider] - As per Instructions [facility],. [Clinic] - As per Instructions
[2017-02-20 08:52] VITALS: BP 149/89; PULSE 84; RESP 18; TEMP 98.4; O2SAT 96
== END 2017-02-20 08:49 | disposition home or self-care (01) ==
LOC: EDUNIT#
DX: F10.129 Alcohol abuse with intoxication, unspecified (principal); I10 Essential (primary) hypertension; F17.200 Nicotine dependence, unspecified, uncomplicated; Z79.82 Long term (current) use of aspirin

== ENCOUNTER 2017-03-12 21:43 | Inpatient (IN) | payer MEDICAID ==
[2017-03-12] MEDS ORDERED: NS 1,000 ML IV ONE (22:30)
[2017-03-12 22:38] LABS: % IMMATURE GRANULYOCYTES 0.3 % (0.0-1.1); ABSOLUTE IMMATURE GRANULOCYTES 0.02 10^3/uL (0.00-0.10); ADD DIFF? NO; ADD MORPH? NO; ADD SCAN? NO; ATYPICAL LYMPHOCYTE FLAG 0 (0-99); FRAGMENT RBC FLAG 0 (0-99); HEMATOCRIT 37.3 % (40.0-51.0); HEMOGLOBIN 12.1 g/dL (13.7-17.5); LEFT SHIFT FLG 20 (0-99); LIPEMIA HEMOLYSIS FLAG 80 (0-99); MEAN CELL HEMOGLOBIN 29.7 pg (27.9-34.1); MEAN CELL HEMOGLOBIN CONCENTR. 32.4 g/dL (32.4-36.7); MEAN CELL VOLUME 91.6 fL (81.5-99.8); MEAN PLATELET VOLUME 9.2 fL (8.7-11.7); PLATELET CLUMPS FLAG 20 (0-99); PLATELET COUNT 87 10^3/uL (150-400); RED BLOOD CELL COUNT 4.07 10^6/uL (4.40-6.38); RED CELL DISTRIBUTION WIDTH 18.7 % (11.5-15.2)
[2017-03-12 22:45] LABS: ANION GAP 12 mEq/L (8-16); CALCIUM 7.5 mg/dL (8.5-10.4); CARBON DIOXIDE 26 mEq/l (22-31); CHLORIDE 100 mEq/L (97-110); CREATININE 0.8 mg/dL (0.7-1.3); GLOMERULAR FILTRATION RATE > 60; GLUCOSE 96 mg/dL (70-100); SODIUM 138 mEq/L (134-144)
[2017-03-12 22:56] LABS: ETHANOL SERUM 411 mg/dL (0-10)
--- NOTE | 2017-03-12 22:57 | CPEKG ---
Heart Rate: 132 RR Interval: 455 P-R Interval: 152 QRSD Interval: 104 QT Interval: 316 QTC Interval: 468 P [place]: 80 QRS [place]: 60 T Wave [place]: 32 EKG Severity - ABNORMAL ECG - EKG Impression: SINUS TACHYCARDIA EKG Impression: PAIRED VENTRICULAR PREMATURE COMPLEXES Electronically Signed By: Yefri Fenton 13-Mar-2017 07:15:42
[2017-03-12] MEDS ORDERED: VANCOMYCIN 1.5 GM in D5W 250 ML IV ONE (23:13)
[2017-03-12] MEDS ORDERED: PIPERACILLIN/TAZO 4.5 GM/DEX 100 ML IV ONE (23:13)
[2017-03-12 23:22] LABS: MAGNESIUM 1.8 mg/dL (1.6-2.3)
[2017-03-12 23:32] LABS: TROPONIN I < 0.012 ng/mL (0-0.034)
[2017-03-13] MEDS ORDERED: NS 1,000 ML IV ONE ×2 (00:05→02:16)
--- NOTE | 2017-03-13 00:19 | EDPHY ---
H & P Smoking Status: Current some day smoker Time Seen by Provider: 03/12/17 22:09 HPI/ROS: CHIEF COMPLAINT: Infection right leg HISTORY OF PRESENT ILLNESS: 31-year-old male presents to the emergency department by ambulance with infection in his right leg. The patient was apparently taken into custody at halfway and they noticed the infection in his leg and was brought to the emergency department for evaluation. The patient admits to drinking alcohol today. He tells me that he broke his leg a long time ago and he has had problems with his leg. Denies any new associated trauma. He denies chest pain or difficulty breathing. Denies abdominal pain. He admits to drinking a large amount of alcohol today and every day. He denies any other substance abuse he denies pain in his groin. Denies urinary symptoms. Denies neck or back pain. Denies any reported fall. REVIEW OF SYSTEMS: Constitutional: No fever, no chills. Eyes: No double or blurry vision. ENT: No sore throat. Respiratory: No cough, no shortness of breath. Cardiac: No chest pain. Gastrointestinal: No abdominal pain, vomiting or diarrhea. Genitourinary: No dysuria. Musculoskeletal: No neck or back pain. Skin: Abrasions. No rashes. Neurological: No headache. (Corinne Archuleta) Past Medical/Surgical History: Atrial fibrillation, atrial flutter, history of right tib-fib fracture requiring surgical repair with hardware placed, alcoholism (Corinne Archuleta M) Social History: Homeless from [place] (Corinne Archuleta M) Physical Exam: General Appearance: Temperature 37.5 , 137/71, 74% on room air. No physical signs of trauma to his head. He he is lethargic. Eyes: Pupils equal and round. Extraocular motions are all intact. ENT: Mouth: Mucous membranes dry. Respiratory: No wheezing, rhonchi, or rales, lungs are clear to auscultation. Cardiovascular: Regular rate and rhythm. Gastrointestinal: Abdomen is soft and nontender, no masses, no rebound or guarding, bowel sounds normal. Neurological: Uncooperative, cannot determine Skin: Warm and dry, no rashes. Musculoskeletal: Nontender to palpate along the cervical, thoracic or lumbar spine. Neck is supple. Extremities: Right lower extremity is very swollen, erythematous and warm to the touch. Nontender to palpate. There is open wounds to the right lower extremity that are not weeping. No palpable fluctuance or evidence of abscess. He is healing abrasion noted to the right knee. Nontender to palpate the right groin. Left lower extremities nontender and appears without injury. No evidence of compartment syndrome. Psychiatric: no agitation. (Corinne Archuleta) Constitutional: Initial Vital Signs Temperature (C) 38.2 C 03/12/17 21:58 Heart Rate 78 03/12/17 21:58 Respiratory Rate 18 03/12/17 21:58 Blood Pressure 137/71 H 03/12/17 21:58 O2 Sat (%) 74 L 03/12/17 21:58 O2 Delivery Mode Nasal Cannula O2 (L/minute) 4 Allergies/Adverse Reactions: No Known Allergies Allergy (Verified 02/04/17 16:23) Home Medications: Medication Instructions Recorded Multivitamins [Multivitamin (*)] 1 each PO DAILY 02/21/16 Aspirin [Aspirin 81mg (*)] 81 mg PO DAILY #0 tab.chew 02/23/16 Metoprolol Tartrate [Lopressor 25 25 mg PO BID #60 tab 02/23/16 mg (*)] Lisinopril 10 mg PO DAILY #30 tablet 11/10/16 Medical Decision Making - Diagnostics Imaging: Discussed imaging studies w/ call circuit worker Radiologist - Diagnostics Imaging Results: Imaging Impressions Extremity Venous Study 03/12/17 22:48 Impression: No evidence of deep vein thrombosis in the right leg. I telephoned results to Corinne Archuleta at 2345 hours. Tibia/Fibula X-Ray 03/12/17 22:54 Impression: 1. Swollen soft tissues right leg. 2. Radiographically complete healing of distal right tibia and distal right fibular fractures. 3. Internal fixation of tibia with a long metal allyson. Chest X-Ray 03/12/17 23:10 Impression: 1. Mild cardiomegaly. 2. Consolidated left lower lobe. Recommend departmental PA and lateral chest radiographs. ED Course/Re-evaluation: 31-year-old male with multiple medical problems presents to the emergency department with it cellulitis right lower leg. Blood cultures have been drawn. His lactate is normal at 1.4. The patient was started on Zosyn and IV vancomycin in the emergency department. Case was discussed with Dr. Yefri MacDade, secondary supervising physician, who also evaluated the patient. Patient will be admitted to the hospitalist. Patient has an alcohol of over 400 currently. His white blood cell count is normal. Afebrile. (Corinne Archuleta) [id number]: Patient seen evaluated by myself as well. Patient noted to be 1. tachycardic, 2. hypoxic, 3. intoxicated with alcohol, 4. Concerning right leg cellulitis and swelling. Patient has had blood cultures pulled he has been given IV fluids IV Ativan for alcohol withdrawal as he is tachycardic, multiple EKGs, chest x-ray shows cardiomegaly possibly infiltrate patient is pending a CT angiogram of his chest to make sure does not pulmonary embolism. Due to tachycardia and hypoxia. Patient receiving broad-spectrum antibiotics including IV vancomycin IV Zosyn for right leg cellulitis and possible pneumonia. Given this patient's hypoxia, tachycardia, alcohol intoxication concerning for pneumonia and cellulitis and sepsis. Patient be admitted to the ICU due to the constellation of multiple medical problems and how sick he is. It is noted he is not hypotensive he is not requiring pressors. He did spike a fever he will be given antipyretic ibuprofen. Critical Care: Total Critical Care Time Spent Managing this Patient: 65Minutes. This time was spent Exclusively with this patient. This Care was exclusive of procedures. The Organ System/life at risk was multiple system including cardiac, pulmonary, hemodynamically. This Patient was in Critical Condition because sepsis, alcohol intoxication, hypoxia, tachycardia, alcohol withdraw (Yefri Fenton) Differential Diagnosis: Including but not limited to cellulitis, abscess, compartment syndrome, necrotizing fasciitis, sepsis, fracture (SmithatoribioCorinne Blaire) - Data Points Laboratory Results: Laboratory Results 03/12/17 21:55 03/12/17 21:55 03/12/17 03/12/17 03/12/17 22:55 21:55 21:55 WBC RBC Hgb Hct MCV MCH MCHC RDW Plt Count MPV Neut % (Auto) Lymph % (Auto) [place] % (Auto) Eos % (Auto) Baso % (Auto) Nucleat RBC Rel Count Absolute Neuts (auto) Absolute Lymphs (auto) Absolute Monos (auto) Absolute Eos (auto) Absolute Basos (auto) Absolute Nucleated RBC Immature Gran % Immature Gran # VBG Lactic Acid 1.4 mmol/L mmol/L (0.7-2.1) Sodium 138 mEq/L mEq/L (134-144) Potassium 4.0 mEq/L mEq/L (3.5-5.2) Chloride 100 mEq/L mEq/L (97-110) Carbon Dioxide 26 mEq/l mEq/l (22-31) Anion Gap 12 mEq/L mEq/L (8-16) BUN 8 mg/dL mg/dL (7-23) Creatinine 0.8 mg/dL mg/dL (0.7-1.3) Estimated GFR > 60 Glucose 96 mg/dL mg/dL (70-100) Calcium 7.5 mg/dL L mg/dL (8.5-10.4) Magnesium 1.8 mg/dL mg/dL (1.6-2.3) Troponin I < 0.012 ng/mL ng/mL (0-0.034) NT-Pro-B Natriuret Pep 176 pg/mL H pg/mL (0-125) Ethyl Alcohol 411 mg/dL H* mg/dL (0-10) 03/12/17 21:55 WBC 5.85 10^3/uL 10^3/uL (3.80-9.50) RBC 4.07 10^6/uL L 10^6/uL (4.40-6.38) Hgb 12.1 g/dL L g/dL (13.7-17.5) Hct 37.3 % L % (40.0-51.0) MCV 91.6 fL fL (81.5-99.8) MCH 29.7 pg pg (27.9-34.1) MCHC 32.4 g/dL g/dL (32.4-36.7) RDW 18.7 % H % (11.5-15.2) Plt Count 87 10^3/uL L 10^3/uL (150-400) MPV 9.2 fL fL (8.7-11.7) Neut % (Auto) 73.3 % % (39.3-74.2) Lymph % (Auto) 14.5 % L % (15.0-45.0) [place] % (Auto) 10.8 % % (4.5-13.0) Eos % (Auto) 0.2 % L % (0.6-7.6) Baso % (Auto) 0.9 % % (0.3-1.7) Nucleat RBC Rel Count 0.0 % % (0.0-0.2) Absolute Neuts (auto) 4.29 10^3/uL 10^3/uL (1.70-6.50) Absolute Lymphs (auto) 0.85 10^3/uL L 10^3/uL (1.00-3.00) Absolute Monos (auto) 0.63 10^3/uL 10^3/uL (0.30-0.80) Absolute Eos (auto) 0.01 10^3/uL L 10^3/uL (0.03-0.40) Absolute Basos (auto) 0.05 10^3/uL 10^3/uL (0.02-0.10) Absolute Nucleated RBC 0.00 10^3/uL 10^3/uL (0-0.01) Immature Gran % 0.3 % % (0.0-1.1) Immature Gran # 0.02 10^3/uL 10^3/uL (0.00-0.10) VBG Lactic Acid Sodium Potassium Chloride Carbon Dioxide Anion Gap BUN Creatinine Estimated GFR Glucose Calcium Magnesium Troponin I NT-Pro-B Natriuret Pep Ethyl Alcohol Medications Given: Discontinued Medications Sodium Chloride (Ns) 1,000 mls @ 0 mls/hr IV ONCE ONE PRN Reason: Wide Open Stop: 03/12/17 22:31 Last Admin: 03/12/17 22:31 Dose: 1,000 mls Vancomycin HCl 1.5 gm/ (Dextrose) 250 mls @ 166.67 mls/hr IV EDNOW ONE PRN Reason: Protocol Stop: 03/13/17 00:42 Last Admin: 03/13/17 01:15 Dose: 250 mls Departure - Departure Disposition: [facility] Acute Clinical Impression: Cellulitis of right leg, Alcohol intoxication, Alcohol withdrawal Condition: Fair
[2017-03-13] MEDS ORDERED: ONDANSETRON DISINTEGRATING 4 MG TAB PO PRN (00:25)
[2017-03-13] MEDS ORDERED: ALBUTEROL 3 ML DEYVIAL IH PRN (00:25)
[2017-03-13] MEDS ORDERED: HYDROmorphONE/DILAUDID 1 MG/ML SYR IVP PRN (00:25)
[2017-03-13] MEDS ORDERED: oxyCODONE IR 5 MG TAB PO PRN (00:25)
[2017-03-13] MEDS ORDERED: ONDANSETRON 4 MG/2 ML VIAL IVP PRN (00:25)
[2017-03-13] MEDS ORDERED: MAG HYDROX/AL HYDROX/SIMETH 30 ML UDCUP PO PRN (00:29)
[2017-03-13] MEDS ORDERED: LORazepam 2 MG/ML INJ ONE ×2 (01:43→02:53)
[2017-03-13] MEDS: LORazepam 2 MG/ML INJ IVP PRN ×6 (01:55→23:12)
[2017-03-13] MEDS ORDERED: IBUPROFEN 600 MG TAB PO ONE ×2 (02:11→02:16)
--- NOTE | 2017-03-13 02:31 | CPEKG ---
Heart Rate: 145 RR Interval: 414 QRSD Interval: 156 QT Interval: 376 QTC Interval: 584 P [place]: 0 QRS [place]: 166 T Wave [place]: 15 EKG Severity - ABNORMAL ECG - EKG Impression: SINUS TACHYCARDIA EKG Impression: NONSPECIFIC INTRAVENTRICULAR CONDUCTION DELAY EKG Impression: ST DEPRESSION, CONSIDER ISCHEMIA, ANT LEADS Electronically Signed By: Yefri Fenton 13-Mar-2017 07:15:42
[2017-03-13] MEDS ORDERED: IOPAMIDOL (ISOVUE 370) 100 ML BTL IV ONE (02:47)
[2017-03-13] MEDS: ACETAMINOPHEN 500 MG TAB PO PRN ×2 (03:29→16:10)
[2017-03-13] MEDS ORDERED: DEXMEDETOMIDINE HCL 400 MCG in NS 100 ML IV SCH (03:30)
[2017-03-13] MEDS ORDERED: ACETAMINOPHEN 500 MG TAB ONE (03:30)
[2017-03-13] MEDS: NS 1,000 ML IV SCH ×2 (04:15→22:51)
[2017-03-13] MEDS ORDERED: PROTOCOL CALCIUM 1 DOSE IV PRN (04:53)
[2017-03-13] MEDS ORDERED: PROTOCOL POTASSIUM 1 DOSE MISC PRN (04:53)
[2017-03-13] MEDS ORDERED: PROTOCOL K PHOSPHATE 1 DOSE IV PRN (04:53)
[2017-03-13] MEDS ORDERED: PROTOCOL MAGNESIUM 1 DOSE IV PRN (04:53)
[2017-03-13] MEDS ORDERED: MAGNESIUM SULF 1 GM/DEXTROSE 100 ML BAG IV ONE (04:55)
[2017-03-13 05:03] LABS: BASE EXCESS -1.5 mEq/L (-2.5-2.5); BICARBONATE 23 mEq/L (22-26); MEASURED OXYGEN SATURATION 94 % (92-95); PCO2 37 mmHg (34-38); PO2 80 mmHg (65-75); TCO2 24 mEq/L (23-27)
[2017-03-13 05:16] LABS: COLOR YELLOW; LEUKOCYTE ESTERASE,URINE NEGATIVE (NEGATIVE); NITRITE,URINE NEGATIVE (NEGATIVE)
[2017-03-13 05:29] LABS: RBC,URINE 15-25 /hpf (0-3)
[2017-03-13 05:39] LABS: % IMMATURE GRANULYOCYTES 0.6 % (0.0-1.1); ABSOLUTE IMMATURE GRANULOCYTES 0.04 10^3/uL (0.00-0.10); ADD DIFF? NO; ADD MORPH? NO; ADD SCAN? YES; ATYPICAL LYMPHOCYTE FLAG 0 (0-99); FRAGMENT RBC FLAG 0 (0-99); HEMATOCRIT 33.8 % (40.0-51.0); LIPEMIA HEMOLYSIS FLAG 80 (0-99); MEAN CELL HEMOGLOBIN 29.6 pg (27.9-34.1); MEAN CELL HEMOGLOBIN CONCENTR. 32.5 g/dL (32.4-36.7); MEAN CELL VOLUME 91.1 fL (81.5-99.8); PLATELET CLUMPS FLAG 0 (0-99); PLATELET COUNT 69 10^3/uL (150-400); RED BLOOD CELL COUNT 3.71 10^6/uL (4.40-6.38); RED CELL DISTRIBUTION WIDTH 18.4 % (11.5-15.2)
[2017-03-13 05:45] LABS: LEFT SHIFT FLG 130 (0-99)
[2017-03-13 05:46] LABS: PHENCYCLIDINE URINE BCH < 6 ng/ml (NEGATIVE); PHENCYCLIDINE URINE BCH NEGATIVE (NEGATIVE); TETRAHYDROCANNABINOL URINE < 5 ng/mL (NEGATIVE); TETRAHYDROCANNABINOL URINE NEGATIVE (NEGATIVE)
[2017-03-13 05:48] LABS: INR 1.26 (0.83-1.16); PROTIME(PATIENT) 15.8 SEC (12.0-15.0)
[2017-03-13 05:49] LABS: APTT 35.5 SEC (23.0-38.0)
[2017-03-13 05:50] LABS: ALANINE AMINOTRANSFERASE 82 IU/L (21-72); ALBUMIN 2.5 g/dL (3.5-5.0); ALKALINE PHOSPHATASE 158 IU/L (38-126); ANION GAP 8 mEq/L (8-16); ASPARTATE AMINOTRANSFERASE 137 IU/L (17-59); BILIRUBIN,TOTAL 1.2 mg/dL (0.1-1.4); CALCIUM 6.4 mg/dL (8.5-10.4); CARBON DIOXIDE 25 mEq/l (22-31); CHLORIDE 103 mEq/L (97-110); CREATININE 0.7 mg/dL (0.7-1.3); GLOMERULAR FILTRATION RATE > 60; GLUCOSE 111 mg/dL (70-100); MAGNESIUM 1.5 mg/dL (1.6-2.3); POTASSIUM 3.2 mEq/L (3.5-5.2); SODIUM 136 mEq/L (134-144); TOTAL PROTEIN 5.9 g/dL (6.3-8.2)
[2017-03-13] MEDS ORDERED: THIAMINE HCL 500 MG in NS 100 ML IV ONE (06:00)
[2017-03-13 06:01] LABS: TROPONIN I < 0.012 ng/mL (0-0.034)
[2017-03-13] MEDS ORDERED: CALCIUM GLUCONATE 50 ML IV ONE ×2 (06:42→22:34)
[2017-03-13] MEDS ORDERED: MAGNESIUM SULF 1 GM/DEXTROSE 100 ML IV ONE ×2 (06:44→22:34)
[2017-03-13 07:02] LABS: SCAN NEGATIVE
--- NOTE | 2017-03-13 07:16 | PDGENHP ---
History and Physical - Chief Complaint r leg pain - History of Present Illness Patient is a 31-year-old male with history of chronic alcohol use, homelessness , history of AFib vs Aflutter, noncompliant with any home meds who presents to the ED with complaint of right lower extremity pain and swelling. History is difficult to obtain because patient is acutely intoxicated. He is able to say that his lower extremity has chronic skin breakdown/ulceration and edema, but this appeared acutely worsened about 2 days ago. Apparently today he was arrested, and on arrival to the [facility] the office shows noticed his right leg erythema, purulence and edema so he was brought to [facility] for further evaluation. On initial arrival to the ED, patient was afebrile, hemodynamically stable and not significantly tachycardic, although hypoxic on room air. His labs were significant for a largely normal CBC, negative lactic acid, normal BMP, ETOH level >400. CXR was obtained and revealed possible retrocardiac opacity. Lower extremity was noted to be edematous, erythematous, consistent with acute cellulitis. He was cultured and initiated on broad spectrum antibiotics. Over the course of his ED stay, patient developed a fever to 39.9, became significantly tachycardic the 130s-140s and progressively more hypoxic, requiring 15L via OxyMask to maintain saturations at 90%. At this time CT angio was obtained to rule out pulmonary embolism, was negative for PE but did show dense bilateral lower lobe consolidations. In addition he began to show signs of alcohol withdrawal. He was then admitted to the ICU for further management. History Information - Allergies/Home Medication List Allergies/Adverse Reactions: No Known Allergies Allergy (Verified 02/04/17 16:23) Home Medications: Multivitamins [Multivitamin (*)] 1 each PO DAILY 02/21/16 [Last Taken Unknown] I have personally reviewed and updated: family history, medical history, social history, surgical history - Past Medical History Additional medical history: chronic etoh use. Hypertension. afib/aflutter. history of seizures. hypertension - Surgical History Additional surgical history: R leg fracture repair - Family History Positive for: non-pertinent - Social History Smoking Status: Current some day smoker Alcohol Use: Heavy (patient unwilling/unable to quantify how much daily intake) Drug Use: None Additional social history: Homeless, not in penitentiary. Review of Systems ROS: 10pt was reviewed & negative except for what was stated in HPI & below Physical Exam Temp Pulse Resp BP Pulse Ox 37 C 96 18 111/57 L 98 03/13/17 06:00 03/13/17 06:00 03/13/17 06:00 03/13/17 06:00 03/13/17 06:00 O2 (L/minute) 10 Constitutional: not in pain, chronically ill appearing, obese, other ( intoxicated) Eyes: PERRL, anicteric sclera, EOMI Ears, Nose, Mouth, Throat: moist mucous membranes, hearing normal, ears appear normal, no oral mucosal ulcers Cardiovascular: regular rate and rhythym, pulses symmetric bilaterally, tachycardia, edema (2+ edema of RLE), No JVD Peripheral Pulses: 2+: dorsalis-pedis (R), dorsalis-pedis (L) Respiratory: no respiratory distress, no rales or rhonchi, reduced air movement Gastrointestinal: normoactive bowel sounds, soft, non-tender abdomen, no palpable masses, No guarding, No rebound, No distension Genitourinary: no bladder fullness, no bladder tenderness Skin: other (multiple ulcerations of anterior RLE with surrounding erythema; no obvvious fluctuance or abscess) Neurologic: other (answers simple questions, follows commands; moving all extremities equally) Psychiatric: encephalopathic, other (intoxicated/lethargi) Lab Data & Imaging Review 03/13/17 05:25 03/13/17 05:25 WBC 7.05 10^3/uL (3.80-9.50) 03/13/17 05:25 RBC 3.71 10^6/uL (4.40-6.38) L 03/13/17 05:25 Hgb 11.0 g/dL (13.7-17.5) L 03/13/17 05:25 Hct 33.8 % (40.0-51.0) L 03/13/17 05:25 MCV 91.1 fL (81.5-99.8) 03/13/17 05:25 MCH 29.6 pg (27.9-34.1) 03/13/17 05:25 MCHC 32.5 g/dL (32.4-36.7) 03/13/17 05:25 RDW 18.4 % (11.5-15.2) H 03/13/17 05:25 Plt Count 69 10^3/uL (150-400) L 03/13/17 05:25 MPV 10.0 fL (8.7-11.7) 03/13/17 05:25 Neut % (Auto) 88.3 % (39.3-74.2) H 03/13/17 05:25 Lymph % (Auto) 3.3 % (15.0-45.0) L 03/13/17 05:25 [place] % (Auto) 7.4 % (4.5-13.0) 03/13/17 05:25 Eos % (Auto) 0.0 % (0.6-7.6) L 03/13/17 05:25 Baso % (Auto) 0.4 % (0.3-1.7) 03/13/17 05:25 Nucleat RBC Rel Count 0.0 % (0.0-0.2) 03/13/17 05:25 Absolute Neuts (auto) 6.23 10^3/uL (1.70-6.50) 03/13/17 05:25 Absolute Lymphs (auto) 0.23 10^3/uL (1.00-3.00) L 03/13/17 05:25 Absolute Monos (auto) 0.52 10^3/uL (0.30-0.80) 03/13/17 05:25 Absolute Eos (auto) 0.00 10^3/uL (0.03-0.40) L 03/13/17 05:25 Absolute Basos (auto) 0.03 10^3/uL (0.02-0.10) 03/13/17 05:25 Absolute Nucleated RBC 0.00 10^3/uL (0-0.01) 03/13/17 05:25 Immature Gran % 0.6 % (0.0-1.1) 03/13/17 05:25 Immature Gran # 0.04 10^3/uL (0.00-0.10) 03/13/17 05:25 PT 15.8 SEC (12.0-15.0) H 03/13/17 05:25 INR 1.26 (0.83-1.16) H 03/13/17 05:25 APTT 35.5 SEC (23.0-38.0) 03/13/17 05:25 Puncture Site NONE GIVEN 03/13/17 04:50 Patient Temperature 37.0 DEGREES 03/13/17 04:50 pCO2 37 mmHg (34-38) 03/13/17 04:50 pO2 80 mmHg (65-75) H 03/13/17 04:50 Total CO2 24 mEq/L (23-27) 03/13/17 04:50 ABG pH 7.40 (7.35-7.45) 03/13/17 04:50 ABG O2 Saturation 94 % (92-95) 03/13/17 04:50 ABG Base Excess -1.5 mEq/L (-2.5-2.5) 03/13/17 04:50 ABG Lactic Acid 1.3 mmol/L (0.5-1.6) 03/13/17 04:50 VBG Lactic Acid 1.4 mmol/L (0.7-2.1) 03/12/17 22:55 Sodium 136 mEq/L (134-144) 03/13/17 05:25 Potassium 3.2 mEq/L (3.5-5.2) L 03/13/17 05:25 Chloride 103 mEq/L (97-110) 03/13/17 05:25 Carbon Dioxide 25 mEq/l (22-31) 03/13/17 05:25 Bicarbonate 23 mEq/L (22-26) 03/13/17 04:50 Anion Gap 8 mEq/L (8-16) 03/13/17 05:25 BUN 5 mg/dL (7-23) L 03/13/17 05:25 Creatinine 0.7 mg/dL (0.7-1.3) 03/13/17 05:25 Estimated GFR > 60 03/13/17 05:25 Glucose 111 mg/dL (70-100) H 03/13/17 05:25 Calcium 6.4 mg/dL (8.5-10.4) L 03/13/17 05:25 Ionized Calcium 0.90 MMOL/L (1.12-1.30) L 03/13/17 05:25 Phosphorus 3.3 mg/dL (2.5-4.5) 03/13/17 05:25 Magnesium 1.5 mg/dL (1.6-2.3) L 03/13/17 05:25 Total Bilirubin 1.2 mg/dL (0.1-1.4) 03/13/17 05:25 AST 137 IU/L (17-59) H 03/13/17 05:25 ALT 82 IU/L (21-72) H 03/13/17 05:25 Alkaline Phosphatase 158 IU/L (38-126) H 03/13/17 05:25 Troponin I < 0.012 ng/mL (0-0.034) 03/13/17 05:25 NT-Pro-B Natriuret Pep 176 pg/mL (0-125) H 03/12/17 21:55 Total Protein 5.9 g/dL (6.3-8.2) L 03/13/17 05:25 Albumin 2.5 g/dL (3.5-5.0) L 03/13/17 05:25 TSH 0.570 uIU/mL (0.465-4.680) 03/13/17 05:25 Urine Color YELLOW 03/13/17 05:00 Urine Appearance CLEAR 03/13/17 05:00 Urine pH 6.0 (5.0-7.5) 03/13/17 05:00 Ur Specific [place] 1.032 (1.002-1.030) H 03/13/17 05:00 Urine Protein 2+ (NEGATIVE) H 03/13/17 05:00 Urine Ketones NEGATIVE (NEGATIVE) 03/13/17 05:00 Urine Blood 1+ (NEGATIVE) H 03/13/17 05:00 Urine Nitrate NEGATIVE (NEGATIVE) 03/13/17 05:00 Urine Bilirubin NEGATIVE (NEGATIVE) 03/13/17 05:00 Urine Urobilinogen NEGATIVE EU (0.2-1.0) 03/13/17 05:00 Ur Leukocyte Esterase NEGATIVE (NEGATIVE) 03/13/17 05:00 Urine RBC 15-25 /hpf (0-3) H 03/13/17 05:00 Urine WBC 1-3 /hpf (0-3) 03/13/17 05:00 Ur Epithelial Cells TRACE /lpf (NONE-1+) 03/13/17 05:00 Urine Glucose NEGATIVE (NEGATIVE) 03/13/17 05:00 Urine Opiates Screen NEGATIVE ng/mL (NEGATIVE) 03/13/17 05:00 Urine Barbiturates NEGATIVE ng/mL (NEGATIVE) 03/13/17 05:00 Ur Phencyclidine Scrn NEGATIVE ng/mL (NEGATIVE) 03/13/17 05:00 Ur Amphetamines Screen NEGATIVE ng/mL (NEGATIVE) 03/13/17 05:00 U Benzodiazepines Scrn NEGATIVE ng/mL (NEGATIVE) 03/13/17 05:00 Urine Cocaine Screen NEGATIVE ng/mL (NEGATIVE) 03/13/17 05:00 U Marijuana (THC) Screen NEGATIVE ng/mL (NEGATIVE) 03/13/17 05:00 Ethyl Alcohol 411 mg/dL (0-10) H* 03/12/17 21:55 Visualized and Interpreted Chest x-ray results: Yes Chest X-Ray results: infiltrate (retrocardiac/LLL) Visualized and Interpreted imaging results: Yes Interpretation: LE Doppler: no DVT. CT angio chest: no pulm embolism, dense bilateral lower lobe pneumonias Visualized and Interpreted EKG results: Yes EKG additional interpertation: sinus tachycardia with bigeminy Assessment & Plan Assessment: Patient is a 31 year old male with chronic alcohol use, h/o afib/aflutter, hypertension, obesity who presents from police custody with R lower extremity ulceration, erythema and edema. ED evaluation reveals acute cellulitis of RLE, bilateral lower lobe pneumonia and acute alcohol withdrawal. Plan: # sepsis Over ED course, patient became febrile, developed tachycardia, meeting SIRS criteria. He has apparently 2 source of infection, with RLE cellulitis as well as CT showing dense bilateral lower lobe pneumonias. Lactic acid remains normal and he does not have a significant leukocytosis. He was cultured and initiated on broad spectrum antibiotics. - cont vanc/zosyn empirically for treatment of both cellulitis and pneumonia - cont IVF hydration - cont to monitor cbc, lactic acid - f/u blood cultures, obtain sputum cultures - ID consult # acute respiratory failure Likely related to bilateral lower lobe pneumonia. CT has ruled out acute pulmonary embolism. ABG on 15L oxymask is relatively stable. Will continue supplemental O2, appears respiratory status has stabilized. # acute encephalopathy Likely metabolic, related to acute intoxication, acute infection and also alcohol withdrawal. He is moving all extremities on command, answering questions when prompted. No indication for head imaging at this time, will continue to monitor. # acute alcohol withdrawal ETOH level was > 400 on arrival in the ED, however, he was already developing signs of withdrawal on my assessment. Will place on ciwa protocol, supplement thiamine, folate, mvn and all electrolytes and continue ativan IVP prn. # tachycardia Per MR, patient apparently has history of afib/aflutter, noncompliant with any meds. Over ED course, patient became significantly tachycardic, but EKG appears consistent with sinus tachycardia with ventricular bigeminy. Tachycardia likely related to sepsis/acute infection and also acute alcohol withdrawal. PE ruled out, ACS ruled out with trop neg x 2. Will check TTE and cont to monitor. # hypokalemia, hypocalcemia, hypomagnesemia Likely related to poor diet. Placed on replacement protocols. # dispo: admit to ICU for likely > 2 mN stay # gen: NPO unless mental status improves DVT ppx: lovenox Full code
[2017-03-13] MEDS: POTASSIUM Cl (KCl) 100 ML IV SCH ×4 (08:38→12:02)
[2017-03-13] MEDS ORDERED: VANCOMYCIN 1.25 GM in D5W 250 ML IV SCH (09:00)
--- NOTE | 2017-03-13 10:08 | HOSPPROG ---
Hospitalist Progress Note Assessment/Plan: DIAGNOSES: # ACUTE SEPSIS # BILATERAL COMMUNITY AQUIRED PNEUMONIA, SOME IMMUNE SUPPRESSION LIKELY DUE TO ETOH/NUTRITION # CELLULITIS OF LEG # ALCOHOLISM HIGH RISK OF SEVERE WITHDRAWAL # LOW K, MG, CA # ANEMIA THROMBOCYTOPENIA DUE TO ETOH/NUTRITION # SUSPECT VITAMIN DEFICIENCIES # MILD ALCOHOLIC HEPATITIS, NORMAL BILIRUBING PLANS: -continue current abx, follow cultures and clinical course of leg and pneumonia -resp tx's -[facility] protocol -thiamine -encourage nutrition -PT OT -DVT prophlyaxis -electrolyte replacement -PICC as he will need numerous doses of IV K SUBJECTIVE: Says still some pain in leg and pleuritic chest pain no other pain no nausea no chills OBJECTIVE Vitals reviewed: some tachycardia, low grade fever, otherwise stable [employer], my review: sinus with some PVCs Exam: somenolent but arousable, oriented no tremor at present skin warm dry color ok resps not labored lungs clear BSs heart regular abd soft nondistended nontender, bowel sounds present limbs R leg with severe cellulitis, quite edmatous, several deep abrasions but no fluctuance or drainage, no necrosis iv site ok Objective: Vital Signs Temp Pulse Resp BP Pulse Ox 37 C 96 18 111/57 L 98 03/13/17 06:00 03/13/17 06:00 03/13/17 06:00 03/13/17 06:00 03/13/17 06:00 Laboratory Results 03/13/17 05:25 03/13/17 05:25 03/12/17 03/13/17 03/14/17 06:59 06:59 06:59 Intake Total 4002 Output Total 2400 Balance 1602 PT 15.8 SEC (12.0-15.0) H 03/13/17 05:25 INR 1.26 (0.83-1.16) H 03/13/17 05:25 ICD10 Worksheet Patient Problems: Problems Problem Status Onset Alcohol intoxication Acute Alcohol withdrawal Acute Cellulitis of right leg Acute Alcohol intoxication Acute Atrial fibrillation Acute Kidney laceration, right Acute Pneumothorax, right Acute Pulmonary contusion Acute Ribs, multiple fractures Acute Tibia and fibula open fracture, right Acute
[2017-03-13] MEDS ORDERED: ALTEPLASE 2 MG VIAL IVP PRN (10:12)
[2017-03-13] MEDS: ENOXAPARIN 40 MG/0.4 ML SYR SC SCH ×2 (10:22→10:51)
[2017-03-13] MEDS: FOLIC ACID 1 MG TAB PO SCH (10:56)
[2017-03-13] MEDS: MULTIVITAMINS 1 EACH TAB PO SCH (10:56)
--- NOTE | 2017-03-13 11:31 | GCON ---
[f rep st] CONSULTATION DATE OF CONSULTATION: 03/13/2017 REFERRING PHYSICIAN: Oralia Shah MD REASON FOR CONSULTATION: Sepsis with cellulitis and pneumonia. HISTORY OF PRESENT ILLNESS: The patient is a 31-year-old male with a past medical history of chroni c alcohol use and homelessness who I am asked to see in consultation for sepsis associated with righ t lower extremity cellulitis and bilateral lower lobe pneumonia. The patient does have a prior hist ory of an ORIF of the right lower extremity related to an open tib-fib fracture in September of 2014 and was seen by me in 2014 for a for a chronic wound which grew methicillin-susceptible Staphylococc us aureus. He was treated with oral doxycycline at that point in time. Currently, limited history can be obtained regarding the current presenting symptoms. The [facility] after he was noted to have right lower extremity erythema and purulent drainage . The patient does not complain of any right lower extremity pain. His H and P notes that the appe arance of his lower extremity had worsened over the last 2 days. He also admits to having cough. T he patient had an alcohol level greater than [address] scan of the chest was performed b ased on hypoxia being present and shows bibasilar consolidation, left greater than right. The patie nt's venous lactate was 1.3. Of note, he has a normal white blood cell count at time of presentatio n. Blood cultures were obtained, and the patient has been started empirically on vancomycin and Zos yn. Given the above findings, I am now asked to assist in his ongoing management. PAST MEDICAL HISTORY: Hypertension, kidney laceration, pneumothorax, chronic wound of the right low er extremity, alcohol abuse. PAST SURGICAL HISTORY: ORIF with intramedullary allyson placement in 2013. CURRENT MEDICATIONS: Vancomycin 1.25 g IV q.8 hours, Zosyn 4.5 g IV q.8 hours, albuterol nebs, Prec edex, Lovenox 40 mg subcu daily, folate 1 mg p.o. daily, multivitamin p.o. daily, Oxy IR as needed, thiamin replacement. ALLERGIES: No known drug allergies. SOCIAL HISTORY: Patient denies tobacco use, although his H and P notes current tobacco use. The pa tient drinks alcohol with alcohol level greater than 400 on presentation. Denies any drug use. FAMILY HISTORY: Hypertension in his mother noted in my consultation in 2015. REVIEW OF SYSTEMS: Outside that noted in HPI, the remainder of 10 system review cannot be obtained or is unremarkable except for patient has been noted to have some skin wounds over left hip and butt ock. The patient has multiple scars present which he states are related to cultural practices inclu ding piercing. PHYSICAL EXAMINATION: VITAL SIGNS: Temperature maximum 39.4, temperature current 37.0, heart rate 96, respiratory rate 18, blood pressure 111/57, oxygen saturation 98% on 10 L. GENERAL: Patient is an obese male in no acute distress. He appears nontoxic. He has some depression. He is sedated p ost administration of Ativan. HEENT: There is no scleral icterus. There is mild bilateral conjunc tival injection. There are no conjunctival petechiae. Oropharynx is dry with a thick coating on th e tongue. It is difficult to visualize the entire oropharynx. There is no nasal discharge. There is a scabbed lesion on the left side of the nose. NECK: Supple without palpable lymphadenopathy or thyromegaly. CHEST: There are crackles present at both bases with some bronchial breath sounds on the left. Respiratory effort is normal. CARDIOVASCULAR: Regular rate and rhythm without murmurs, gallops, rubs. ABDOMEN: Soft, nontender, nondistended. There is no palpable organomegaly. Bowel sounds are present. MUSCULOSKELETAL: The right lower extremity shows approximately 7 discrete les ions characterized by central eschar and surrounding erythema with warmth. Two of the areas appear to have some superficial purulence which was expressed. The largest eschar is above the patient's p rior surgical incision which is intact. The patient also has an eschar over the left lateral hip wi th faint erythema. SKIN: See musculoskeletal; there are several small ulcerations present over the left buttock which are not grouped as well as an additional lesion over the right posterior calf. There are no stigmata of endocarditis. The skin is warm and dry to touch. NEUROLOGIC: Patient is arousable and follows commands but otherwise is somnolent. Muscle tone and bulk are normal. Sensat ion appears grossly intact. LYMPHATICS: There is no cervical or supraclavicular nodes. There is n o lymphangitis in the next lower extremities bilaterally. LABORATORY DATA: White blood cell count 7.1, hematocrit 33.8, platelets 69, neutrophils 88%, serum creatinine 0.7, bicarbonate is 25, AST 137, ALT 82, alkaline phosphatase 158, bilirubin 1.2, INR is 1.3, lactate 1.3. Urinalysis shows 15-25 red blood cells and 1-3 white blood cells. Alcohol level is 411; urine drug screen is negative. Chest CT as outlined in history of present illness which was reviewed and interpreted by me today. Plain film of the right lower extremity shows healing of the tib-fib fracture. Ultrasound right lower extremity shows no DVT. IMPRESSION: Sepsis associated with bilateral lower lobe pneumonia and right lower extremity skin an d soft tissue infection. Patient's etiology for pneumonia includes typical pathogens of community-a cquired pneumonia with Streptococcus pneumoniae being more problematic in patients with alcohol abus e. Given the normal white blood cell count, this could either be related to severe sepsis or other etiologies such as viral infection including influenza. Atypical pathogens also of consideration, a lthough I suspect will be less likely. 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 This is typically associated with bacterial pathogen such as Staphylococcus au reus or Pseudomonas aeruginosa. Given underlying hardware and chronicity of wounds, this raises con cern for possibility of deeper seated process with potential involvement of hardware, although plain film shows healing of fracture with smooth bony margins. RECOMMENDATIONS: 1. Agree with empiric vancomycin and Zosyn. Will add azithromycin for atypical coverage. 2. Influenza swab by PCR. 3. Wound culture obtained (will have to be interpreted carefully as limited amount of purulence obt ain). 4. Follow up blood cultures as available. 5. The patient may need additional imaging of the right lower extremity as clinical condition elvira isabel. 6. Check urine Legionella antigen. 7. Thank you for this consultation. /[id number]/MODL
[2017-03-13] MEDS: AZITHROMYCIN IV 500 MG in D5W 250 ML IV SCH (12:02)
[2017-03-13] MEDS ORDERED: LISINOPRIL 10 MG TAB PO SCH ×2 (12:30→15:57)
[2017-03-13] MEDS ORDERED: METOPROLOL TARTRATE 25 MG TAB PO SCH ×2 (13:00→15:57)
[2017-03-13] MEDS ORDERED: ASPIRIN 81 MG CHEWABLE TAB ONE (13:21)
[2017-03-13] MEDS: PIPERACILLIN/TAZO 4.5 GM/DEX 100 ML IV SCH ×2 (13:25→19:47)
[2017-03-13] MEDS ORDERED: LORazepam 2 MG/ML INJ IV ONE (16:00)
[2017-03-13] MEDS: ALBUTEROL 3 ML DEYVIAL IH SCH ×2 (16:25→20:37)
[2017-03-13] MEDS ORDERED: LISINOPRIL 10 MG TAB PO ONE (16:30)
[2017-03-13] MEDS ORDERED: METOPROLOL TARTRATE 25 MG TAB PO ONE (16:30)
--- NOTE | 2017-03-13 16:37 | GCON ---
[f rep st] CONSULTATION PULMONARY CRITICAL CARE CONSULTATION DATE OF CONSULTATION: 03/13/2017 REASON FOR CONSULTATION: Pneumonia, cellulitis. HISTORY: The patient is a 31-year-old gentleman who was picked up by the police, apparently having been found down, acutely intoxicated. He apparently was arrested and taken to prison, but on admissio n there, he was found to have an infection in the right lower extremity, and was thus brought to [facility] prior to putting him in prison. In the emergency department, he was found to have significant cellulitis of the right lower extremity with open wounds. He was hypoxemic. A CT scan of the chest was done, which showed no evidence of pulmonary embolic disease, but consolidation and atelectasis of the lower lobes. He was felt to have pneumonia. He was intoxicated, with a blo od alcohol level of 411. He was thus admitted to the intensive care unit for further therapy. He h as been starting to withdraw from alcohol. He denies leg pain. He denies significant shortness of breath. PAST MEDICAL HISTORY: Remarkable for chronic and acute alcohol abuse, with withdrawal in the past. He has a history of an open fracture to the right lower extremity in late 2013, and has had chronic open wounds secondary to that. He has been seen by Infectious Disease previously. He apparently w as started on some antibiotics recently, but admits to not taking them. PAST MEDICAL HISTORY: Other past history is remarkable for systemic hypertension, traumatic pneumot horax, and kidney laceration, and the right lower extremity injury with allyson placement. DRUG ALLERGIES: None known. SOCIAL HISTORY: The patient drinks daily if he can. His preferred beverage is vodka. He does not take drugs. He denies smoking. He is homeless, states he has been in [place] for about 1 year. [facility] is in [place]. FAMILY HISTORY: Hypertension. REVIEW OF SYSTEMS: Difficult to obtain. He denies known cardiac disease, chronic lung problems, he art problems, previous thromboembolic disease by his recollection, etc. He has had redness and swel ling of the right lower extremity for quite some time. PHYSICAL EXAMINATION: GENERAL: Reveals a large gentleman who is in no acute distress. He is sleep ing, easily arousable, responsive and appropriate. He does have a tremor consistent with alcohol wi thdrawal. Blood pressure is 150/100, heart rate 110, with sinus rhythm on the monitor. Respiratory rate is 16. On 3 L of oxygen, saturations are 97%. Temperature is 38.2. HEENT AND NECK: Unremar kable for lymphadenopathy or thyromegaly. There is no obvious jugular venous distention, no pharyng itis. Mucous membranes are moist. There is no scleral icterus. CHEST: Clear anteriorly. Breath sounds are diminished at the bases, with some bronchial changes and rales. With deep breathing, I c an appreciate no rhonchi currently. He has no wheezes. ABDOMEN: The abdomen is overweight, soft, nontender. Bowel sounds are present. A Elizabeth catheter is in place, with good urine output. EXTREM ITIES: The right lower extremity is swollen and erythematous, with old scars, as well as some ulcer ated areas with some drainage. There is also an area of scar over the left hip. NEUROLOGIC: [place] is nonfocal. He moves all extremities equally, and sensation in all extremities is present. Cognition is intact. LABORATORY DATA: Radiologic studies are as outlined above. Right lower extremity films showed no e vidence of acute fracture. White blood cell count is 7000, hematocrit 34, platelets are 69,000. PT on admission was 15.8, PTT 35. Blood lactate was 1.3. Arterial blood gas normal, with a pH of 7.40, pCO2 of 37, and PO2 80 on an unknown amount of supplemental oxygen. Chemistries are remarkable for a potassium of 3.2, gluco se of 111, normal serum bicarbonate, calcium is 6.4, with an ionized calcium low at 0.9, phosphorus is 3.3, magnesium 1.5. Bilirubin is normal, AST is 137, ALT 82, albumin is 2.5. BNP is normal. TS H is normal. Urinalysis on admission showed some protein and red cells of questionable significance . Urine toxicology screen was negative, BAL for 11. Influenza A, B by PCR were negative. ASSESSMENT: 1. Right lower extremity cellulitis. 2. Bibasilar pneumonia and atelectasis. 3. Acute and chronic alcohol abuse, with evidence of acute withdrawal. 4. Hypokalemia, hypocalcemia. 5. Elevated liver function studies, secondary to alcohol, possibly some sepsis. 6. Hypertension. He has a history of systemic hypertension, and is also withdrawing from alcohol. Tachycardia is related to the latter. He is being treated with beta blockers and lisinopril, both of which could be increased, as he is still hypertensive and tachycardic. PLAN: The patient will be kept in the intensive care unit. Antibiotics will be continued, with rec ommendations from Infectious Disease. The patient will be kept on the CIWA protocol. Precedex can be used as needed. He is on as-needed lorazepam as well. Thiamine will be given. Electrolyte repl acement will be given per protocol. Bronchodilator therapy will be initiated. IS will be requested . Coughing and deep breathing is recommended, with mobilization as possible. Laboratory and chest x-ray will be followed. Cultures will be awaited. A sputum culture will be requested. Further plans recommendations will be made based on his progress over the next 12-24 hours. /[id number]/MODL
[2017-03-13] MEDS: VODKA 50 ML BOTTLE PO SCH (17:45)
[2017-03-13] MEDS: VANCOMYCIN HCL/NORMAL SALINE 250 ML IV SCH (17:52)
[2017-03-13 18:30] LABS: POTASSIUM 4.3 mEq/L (3.5-5.2)
[2017-03-13] MEDS: METOPROLOL TARTRATE 50 MG TAB PO SCH (19:48)
[2017-03-13] MEDS ORDERED: diphenhydrAMINE 25 MG CAP PO ONE (21:35)
[2017-03-13 21:58] LABS: IONIZED CALCIUM 1.04 MMOL/L (1.12-1.30)
[2017-03-13 22:20] LABS: ALBUMIN 2.6 g/dL (3.5-5.0); ANION GAP 5 mEq/L (8-16); CALCIUM 7.5 mg/dL (8.5-10.4); CARBON DIOXIDE 27 mEq/l (22-31); CHLORIDE 99 mEq/L (97-110); CREATININE 0.6 mg/dL (0.7-1.3); GLOMERULAR FILTRATION RATE > 60; GLUCOSE 102 mg/dL (70-100); MAGNESIUM 1.8 mg/dL (1.6-2.3); POTASSIUM 3.7 mEq/L (3.5-5.2); SODIUM 131 mEq/L (134-144)
[2017-03-13] MEDS ORDERED: POTASSIUM Cl (KCl) 50 ML IV ONE (22:34)
[2017-03-14] MEDS: VANCOMYCIN HCL/NORMAL SALINE 250 ML IV SCH ×2 (01:05→09:30)
[2017-03-14] MEDS: PIPERACILLIN/TAZO 4.5 GM/DEX 100 ML IV SCH ×3 (03:12→20:59)
[2017-03-14] MEDS: ALBUTEROL 3 ML DEYVIAL IH SCH ×4 (05:02→21:18)
[2017-03-14 05:51] LABS: IONIZED CALCIUM 1.09 MMOL/L (1.12-1.30)
[2017-03-14 05:54] LABS: ADD MORPH? NO; ADD SCAN? YES; ATYPICAL LYMPHOCYTE FLAG 0 (0-99); FRAGMENT RBC FLAG 0 (0-99); HEMOGLOBIN 11.9 g/dL (13.7-17.5); LIPEMIA HEMOLYSIS FLAG 80 (0-99); MEAN CELL HEMOGLOBIN 29.9 pg (27.9-34.1); MEAN CELL HEMOGLOBIN CONCENTR. 32.2 g/dL (32.4-36.7); MEAN PLATELET VOLUME 10.2 fL (8.7-11.7); PLATELET CLUMPS FLAG 10 (0-99); PLATELET COUNT 72 10^3/uL (150-400); RED BLOOD CELL COUNT 3.98 10^6/uL (4.40-6.38)
[2017-03-14] MEDS ORDERED: CALCIUM GLUCONATE 50 ML IV ONE (05:56)
[2017-03-14 06:00] LABS: LEFT SHIFT FLG 120 (0-99)
[2017-03-14 06:07] LABS: ANION GAP 6 mEq/L (8-16); CALCIUM 7.7 mg/dL (8.5-10.4); CARBON DIOXIDE 26 mEq/l (22-31); CHLORIDE 103 mEq/L (97-110); CREATININE 0.7 mg/dL (0.7-1.3); GLOMERULAR FILTRATION RATE > 60; GLUCOSE 84 mg/dL (70-100); POTASSIUM 3.9 mEq/L (3.5-5.2); SODIUM 135 mEq/L (134-144)
[2017-03-14] MEDS ORDERED: POTASSIUM CL 10 MEQ TAB PO ONE ×3 (06:10→18:10)
[2017-03-14 06:42] LABS: ADD DIFF? YES; SCAN POSITIVE
[2017-03-14 06:46] LABS: PLATELET ESTIMATE DECREASED (ADEQ); TOXIC GRANULATION PRESENT; TOXIC VACUOLIZATION PRESENT
[2017-03-14] MEDS: THIAMINE HCL 500 MG in NS 100 ML IV SCH ×2 (08:26→08:56)
[2017-03-14] MEDS: AZITHROMYCIN IV 500 MG in D5W 250 ML IV SCH ×2 (08:26→08:56)
[2017-03-14] MEDS: METOPROLOL TARTRATE 50 MG TAB PO SCH ×2 (08:26→21:21)
[2017-03-14] MEDS: FOLIC ACID 1 MG TAB PO SCH (08:56)
[2017-03-14] MEDS: ENOXAPARIN 40 MG/0.4 ML SYR SC SCH (08:56)
[2017-03-14] MEDS: ASPIRIN 81 MG CHEWABLE TAB PO SCH (08:56)
[2017-03-14] MEDS: MULTIVITAMINS 1 EACH TAB PO SCH (08:56)
[2017-03-14] MEDS ORDERED: LISINOPRIL 20 MG TAB PO SCH (09:00)
--- NOTE | 2017-03-14 11:08 | HOSPPROG ---
Hospitalist Progress Note Assessment/Plan: DIAGNOSES: # ACUTE SEPSIS # BILATERAL COMMUNITY AQUIRED PNEUMONIA, SOME IMMUNE SUPPRESSION LIKELY DUE TO ETOH/NUTRITION # CELLULITIS OF LEG # ALCOHOLISM HIGH RISK OF SEVERE WITHDRAWAL # LOW K, MG, CA # ANEMIA THROMBOCYTOPENIA DUE TO ETOH/NUTRITION # SUSPECT VITAMIN DEFICIENCIES # MILD ALCOHOLIC HEPATITIS, NORMAL BILIRUBIN Overall his leg looks better and he looks better in terms of overall appearance , thought wbc is increased today. PLANS: -continue current abx, follow cultures and clinical course of leg and pneumonia -wound care for leg -resp tx's -continue alcohol, continue CIWA protocol to avoid significant withdrawal -thiamine -encourage nutrition -PT OT -DVT prophlyaxis -electrolyte replacement -PICC as he will need numerous doses of IV K SUBJECTIVE: feeling better overall no pain in leg or chest not sob very tired and weak eating ok did walk OBJECTIVE Vitals reviewed: some tachycardia, low grade fever, otherwise stable Teaching Young, my review: sinus, much less PVCs Exam: less somenolent, oriented no tremor at present, not anxious or confused skin warm dry color ok resps not labored lungs clear BSs heart regular abd soft nondistended nontender, bowel sounds present limbs R leg with less edema and erythema but remains quite swollen, several deep abrasions but no fluctuance or drainage, no necrosis iv site ok Objective: Vital Signs Temp Pulse Resp BP Pulse Ox 37.5 C 87 19 147/96 H 96 03/14/17 08:00 03/14/17 10:00 03/14/17 10:00 03/14/17 10:00 03/14/17 10:00 Microbiology 03/13/17 10:00 Gram Stain - Final Leg - Swab Laboratory Results 03/14/17 05:35 03/14/17 05:35 03/13/17 03/14/17 03/15/17 06:59 06:59 06:59 Intake Total 4002 3986 Output Total 2400 7150 Balance 1602 -3164 PT 15.8 SEC (12.0-15.0) H 03/13/17 05:25 INR 1.26 (0.83-1.16) H 03/13/17 05:25 ICD10 Worksheet Patient Problems: Problems Problem Status Onset Alcohol intoxication Acute Alcohol withdrawal Acute Cellulitis of right leg Acute Alcohol intoxication Acute Atrial fibrillation Acute Kidney laceration, right Acute Pneumothorax, right Acute Pulmonary contusion Acute Ribs, multiple fractures Acute Tibia and fibula open fracture, right Acute
[2017-03-14] MEDS: VODKA 50 ML BOTTLE PO SCH ×2 (12:30→17:56)
[2017-03-14] MEDS: ACETAMINOPHEN 500 MG TAB PO PRN (14:04)
--- NOTE | 2017-03-14 14:07 | PCMIDPN ---
Assessment/Plan: Assessment/Plan: * Sepsis due to bilateral pneumonia and right lower extremity cellulitis: Clinically improved. Blood cultures are no growth to date. Wound culture from right lower extremity shows growth of MSSA and group A Streptococcus. Concerned that may have deeper seated source related to prior ORIF. Will review with radiology further imaging given large indwelling allyson in place. Discontinue vancomycin. Continue Zosyn and azithromycin. Follow up cultures as available. 03/14/17 14:04 03/14/17 14:06 Subjective: Patient feels better. Intermittent cough. No significant right lower extremity tenderness. Objective: Vital Signs Temp Pulse Resp BP Pulse Ox 37.8 C 86 19 172/119 H 91 L 03/14/17 12:00 03/14/17 14:00 03/14/17 14:00 03/14/17 14:00 03/14/17 14:00 Microbiology 03/13/17 10:00 Gram Stain - Final Leg - Swab Laboratory Results 03/14/17 05:35 03/14/17 05:35 03/13/17 03/14/17 03/15/17 05:59 05:59 05:59 Intake Total 4002 3986 Output Total 2400 7150 600 Balance 1602 -3164 -600 Vancomycin # 2 Zosyn # 2 Azithromycin # 2 Blood cultures x2 no growth Flu PCR negative Urine Legionella antigen pending Right lower extremity culture with growth of MSSA and group A Streptococcus - Physical Exam General Appearance: non-toxic, other (Sleepy but easily arousable and follows commands) EENT: No scleral icterus, No thrush Respiratory: other (Decreased breath sounds both bases) Neck: supple Cardiac/Chest: regular rate, rhythm Extremities: inflammation (Erythema around eschar over right lower extremity less prominent without active drainage; left hip eschar stable) Abdomen: non-tender, No distended ICD10 Worksheet Patient Problems: Problems Problem Status Onset Alcohol intoxication Acute Alcohol withdrawal Acute Cellulitis of right leg Acute Alcohol intoxication Acute Atrial fibrillation Acute Kidney laceration, right Acute Pneumothorax, right Acute Pulmonary contusion Acute Ribs, multiple fractures Acute Tibia and fibula open fracture, right Acute
--- NOTE | 2017-03-14 16:16 | PDINTPN ---
Rn Night Progress Note Assessment/Plan: Assessment: Alcohol withdrawal. On the CIWA protocol. Stable. Chronic alcoholism, with a blood alcohol of 411 on admission. Right lower extremity cellulitis. Left lower lobe pneumonia. Hypertension. Blood pressures remain high. Has a history of essential hypertension, now made worse by alcohol withdrawal. DVT prophylaxis: On enoxaparin GI prophylaxis: On pantoprazole Metabolic: On replacement protocols. Thrombocytopenia, increased liver function studies: Secondary to alcohol Plan: Continue care in the intensive care unit. Continue intravenous fluids. Continue antibiotics. Continue CIWA protocol. Will increase lisinopril. Follow laboratory, chest x-ray intermittently. All the above discussed with nursing, hospitalist, and the ICU multi disciplinary team. 30 minutes of clinic time spent directly with the patient. Subjective: Doing okay. Lethargic, sleeping at times, arousable and up at others. Continues to feel shaky. Some shortness of breathot able to bring up much mucus. Objective: Vital Signs Temp Pulse Resp BP Pulse Ox 37.3 C 85 19 147/100 H 96 03/14/17 16:00 03/14/17 16:00 03/14/17 16:00 03/14/17 16:00 03/14/17 16:00 Microbiology 03/13/17 10:00 Gram Stain - Final Leg - Swab Laboratory Results 03/14/17 05:35 03/14/17 05:35 03/13/17 03/14/17 03/15/17 05:59 05:59 05:59 Intake Total 4002 3986 Output Total 2400 7150 600 Balance 1602 -3164 -600 PT 15.8 SEC (12.0-15.0) H 03/13/17 05:25 INR 1.26 (0.83-1.16) H 03/13/17 05:25 Laboratory Tests 03/14/17 03/14/17 05:35 05:35 Calcium 7.7 L Ionized Calcium 1.09 L Phosphorus 3.0 Magnesium 2.0 CXR: Persistent infiltrate at the left base. Not worse. Right base atelectasis or infiltrate looks better. Physical Exam - Physical Exam General Appearance: other, No moderate distress (somnolent, arouses, responsive) EENT: other (Oxy mask at 5 L: Sats 95%) Neck: normal inspection (No obvious JVD) Respiratory: lungs clear (Anteriorly), decreased breath sounds, rales (Rales bronchial changes at left base, some rales at the right base), No rhonchi (No central rhonchi however with cough there is some central congestion) Cardiac/Chest: regular rate, rhythm Abdomen: normal bowel sounds, non-tender, soft Skin: normal color, warm/dry Extremities: swelling (Right lower extremity with lesions similar to yesterday. No progression of cellulitis.) Neuro/Psych: no motor/sensory deficits (Moves all extremities), No cognition abnormalities (Oriented, not confused was still exhibiting some signs and symptoms of withdrawal.) ICD10 Worksheet Patient Problems: Problems Problem Status Onset Pneumothorax, right Acute Pulmonary contusion Acute Ribs, multiple fractures Acute Kidney laceration, right Acute Tibia and fibula open fracture, right Acute Atrial fibrillation Acute Alcohol intoxication Acute Cellulitis of right leg Acute Alcohol intoxication Acute Alcohol withdrawal Acute
[2017-03-14] MEDS ORDERED: ENALAPRILAT DIHYDRATE 1.25 MG/ML VIAL IVP PRN (16:20)
[2017-03-14 18:02] LABS: POTASSIUM 3.8 mEq/L (3.5-5.2)
--- NOTE | 2017-03-14 19:48 | WOCRNPDOC ---
[facility] - Skin Integrity Problem, Advanced Assess Right Lower Leg Injuries Dressing Type: Open to Air Exudate Amount: None Integumentary Issue Intervention: Dressing Applied (skin prep, Hypergel, small Leukomeds x 4; bandaids x 2), Dressing Initialed & Dated Juliet Wound Tissue: Erythema, Indurated (mild), Intact, Dry Juliet Wound Swelling: Mild Wound Bed Color: Black Wound Bed Constitution: Stable Eschar Wound Edges: Well Defined Site Odor: None Site Measurement - Head-to-Toe Length X Width X Depth (cm): knee=4 x 3 x 0. lateral knee=3x2.3x0. mid, proximal=3x2.1x0. mid distal=2.5x2x0. distal (two sites)=1cm norman x 0 Skin Integrity Problem Comment: Patient reports that he suffered injuries in a fall. Multiple sites along RLE all present with a dried, adherent eschar covering, with mild erythema at periwound, but without apparent tenderness to touch. Cleaned all wounds with sterile NS and gauze; applied skin prep to periwounds, Hypergel to debride eschar, and covered the larger wounds with small Leukomed dressings , and the smaller two with bandaids. CAROL Weaver present. Wound Care will round next: Wednesday, 03/16. Left Hip Abrasion Dressing Type: Open to Air Exudate Amount: None Integumentary Issue Intervention: Dressing Applied (skin prep, Hypergel, small Leukomed) Juliet Wound Tissue: Erythema (mild) Juliet Wound Swelling: Mild Wound Bed Color: Black Wound Bed Constitution: Stable Eschar Wound Edges: Attached, Well Defined Site Odor: None Site Measurement - Head-to-Toe Length X Width X Depth (cm): 2.3x1.1x0 Skin Integrity Problem Comment: Hip wound presents with a dried, adherent eschar covering, with mild erythema at periwound, but without apparent tenderness to touch. Cleaned wound with sterile NS and gauze; applied skin prep to periwound, Hypergel to debride eschar, and covered with small Leukomed dressing. Left Palm Abrasions Dressing Type: Open to Air Exudate Amount: None Integumentary Issue Intervention: Dressing Applied (skin prep, Hypergel, large bandaids), Dressing Initialed & Dated Juliet Wound Swelling: Mild Wound Bed Color: Black Wound Bed Constitution: Stable Eschar Wound Edges: Attached, Irregular Site Odor: None Site Measurement - Head-to-Toe Length X Width X Depth (cm): 1 x 0.5 x0. 0.5 x 1 x 0 Skin Integrity Problem Comment: Two small, jagged-looking wounds on the heel of the palm present with dried, adherent eschar covering, with mild erythema but without apparent tenderness to touch. Cleaned wounds with sterile NS and gauze; applied skin prep to periwound, Hypergel to debride eschar, and covered with large bandaids.
[2017-03-14] MEDS: LISINOPRIL 20 MG TAB PO SCH (21:21)
[2017-03-15] MEDS: LORazepam 2 MG/ML INJ IVP PRN ×2 (00:39→22:13)
[2017-03-15] MEDS: PIPERACILLIN/TAZO 4.5 GM/DEX 100 ML IV SCH ×3 (03:22→18:33)
[2017-03-15] MEDS: ALBUTEROL 3 ML DEYVIAL IH SCH ×4 (05:52→21:21)
[2017-03-15 06:13] LABS: % IMMATURE GRANULYOCYTES 0.5 % (0.0-1.1); ABSOLUTE IMMATURE GRANULOCYTES 0.04 10^3/uL (0.00-0.10); ADD DIFF? NO; ADD MORPH? NO; ADD SCAN? NO; ATYPICAL LYMPHOCYTE FLAG 0 (0-99); FRAGMENT RBC FLAG 0 (0-99); HEMATOCRIT 37.2 % (40.0-51.0); HEMOGLOBIN 11.9 g/dL (13.7-17.5); LEFT SHIFT FLG 50 (0-99); LIPEMIA HEMOLYSIS FLAG 80 (0-99); MEAN CELL HEMOGLOBIN 29.8 pg (27.9-34.1); MEAN PLATELET VOLUME 9.9 fL (8.7-11.7); PLATELET CLUMPS FLAG 30 (0-99); PLATELET COUNT 98 10^3/uL (150-400); RED CELL DISTRIBUTION WIDTH 17.5 % (11.5-15.2)
[2017-03-15 06:27] LABS: ANION GAP 6 mEq/L (8-16); CARBON DIOXIDE 26 mEq/l (22-31); CHLORIDE 99 mEq/L (97-110); CREATININE 0.7 mg/dL (0.7-1.3); GLOMERULAR FILTRATION RATE > 60; GLUCOSE 87 mg/dL (70-100); MAGNESIUM 1.7 mg/dL (1.6-2.3); POTASSIUM 3.8 mEq/L (3.5-5.2); SODIUM 131 mEq/L (134-144)
[2017-03-15] MEDS ORDERED: POTASSIUM CL 10 MEQ TAB PO ONE ×3 (06:42→19:40)
[2017-03-15] MEDS ORDERED: MAGNESIUM SULF 1 GM/DEXTROSE 100 ML IV ONE (06:42)
[2017-03-15] MEDS ORDERED: CALCIUM GLUCONATE 50 ML IV ONE (06:42)
[2017-03-15] MEDS: ENOXAPARIN 40 MG/0.4 ML SYR SC SCH (09:49)
[2017-03-15] MEDS: PANTOPRAZOLE SODIUM 40 MG TAB PO SCH (09:50)
[2017-03-15] MEDS: ASPIRIN 81 MG CHEWABLE TAB PO SCH (09:50)
[2017-03-15] MEDS: METOPROLOL TARTRATE 50 MG TAB PO SCH ×2 (09:50→20:30)
[2017-03-15] MEDS: FOLIC ACID 1 MG TAB PO SCH (09:50)
[2017-03-15] MEDS: LISINOPRIL 20 MG TAB PO SCH ×2 (09:50→20:31)
[2017-03-15] MEDS: MULTIVITAMINS 1 EACH TAB PO SCH (09:50)
[2017-03-15] MEDS ORDERED: MAGNESIUM SULF 1 GM/DEXTROSE 100 ML BAG IV ONE (09:53)
[2017-03-15] MEDS: AZITHROMYCIN IV 500 MG in D5W 250 ML IV SCH (10:03)
[2017-03-15] MEDS: THIAMINE HCL 500 MG in NS 100 ML IV SCH (10:04)
--- NOTE | 2017-03-15 13:14 | HOSPPROG ---
Hospitalist Progress Note Assessment/Plan: DIAGNOSES: # ACUTE SEPSIS # BILATERAL COMMUNITY AQUIRED PNEUMONIA, SOME IMMUNE SUPPRESSION LIKELY DUE TO ETOH/NUTRITION # CELLULITIS OF LEG # ALCOHOLISM HIGH RISK OF SEVERE WITHDRAWAL # LOW K, MG, CA # ANEMIA THROMBOCYTOPENIA DUE TO ETOH/NUTRITION # SUSPECT VITAMIN DEFICIENCIES # MILD ALCOHOLIC HEPATITIS, NORMAL BILIRUBIN Improving nicely overall. His leg is again less swollen and less cellulitic. His wounds are still showing no signs of necrosis or abscess. Respiratory curtis he is still in several L of oxygen but is able to get up and walk. Should be stable to transfer to [facility] floor today PLANS: -continue current abx, follow cultures and clinical course of leg and pneumonia -wound care for leg -resp tx's -continue alcohol, continue CIWA protocol to avoid significant withdrawal -thiamine -encourage nutrition -PT OT -DVT prophlyaxis -electrolyte replacement -PICC as he will need numerous doses of IV K SUBJECTIVE: feeling better overall no pain in leg or chest not sob very tired and weak eating ok did walk OBJECTIVE Vitals reviewed: intermittent low-grade hypertension and tachypnea, otherwise stable no fever Outbound Sales Consultant, my review: sinus Exam: less somenolent, oriented no tremor at present, not anxious or confused skin warm dry color ok resps not labored lungs clear BSs heart regular abd soft nondistended nontender, bowel sounds present limbs R leg with less edema and erythema but remains quite swollen, several deep abrasions but no fluctuance or drainage, no necrosis iv site ok Objective: Vital Signs Temp Pulse Resp BP Pulse Ox 37.0 C 90 16 126/71 H 94 03/15/17 06:00 03/15/17 11:05 03/15/17 11:05 03/15/17 08:00 03/15/17 11:05 Microbiology 03/13/17 10:00 Gram Stain - Final Leg - Swab Laboratory Results 03/15/17 06:00 03/15/17 06:00 03/14/17 03/15/17 03/16/17 06:59 06:59 06:59 Intake Total 3986 2038 Output Total 7153 600 Balance -3164 1438 PT 15.8 SEC (12.0-15.0) H 03/13/17 05:25 INR 1.26 (0.83-1.16) H 03/13/17 05:25 ICD10 Worksheet Patient Problems: Problems Problem Status Onset Alcohol intoxication Acute Alcohol withdrawal Acute Cellulitis of right leg Acute Alcohol intoxication Acute Atrial fibrillation Acute Kidney laceration, right Acute Pneumothorax, right Acute Pulmonary contusion Acute Ribs, multiple fractures Acute Tibia and fibula open fracture, right Acute
--- NOTE | 2017-03-15 14:57 | WOCRNPDOC ---
WOCRN Advanced Assessment Note - Skin Integrity Problem, Advanced Assess Right Lower Leg Injuries Dressing Type: LeukoMed with Pads Dressing Description: Intact, Saturated Exudate Amount: Minimal Exudate Characteristic(s): Serosanguinous Integumentary Issue Intervention: Visualized Under Dressing Juliet Wound Swelling: None Wound Bed Color: [place] Wound Bed Constitution: Smooth Tissue Skin Integrity Problem Comment: Wound has fully debrided. Will update dressing change orders accordingly. Did not assess hip, however per RN report it too needs a different dressing as there was too much drainage with the lukeomed and it was saturating. Will follow up again in one week. Please reconsult prn before that with concerns. Left Palm Abrasions Dressing Type: Band Aid Dressing Description: Clean/Dry, Intact Skin Integrity Problem Comment: Wound has fully debrided. Will update dressing change orders accordingly.
--- NOTE | 2017-03-15 15:44 | PCMIDPN ---
Assessment/Plan: Assessment: sepsis due to RLE cellulitis as well as pneumonia. Group A strep and MSSA on leg wound culture. Covered with Zosyn as well as azithromycin (for atypical pathogen pneumonia.) Seems to be improving. Right leg less swollen and less red per patient. Plan to continue this regimen and follow his clinical improvement. Consider MRI of R leg to evaluate possible involvement of medullary allyson. Plan: 1) Continue Zosyn for cellulitis of lower extremity and pneumonia coverage. 2) Continue Azithromycin for pneumonia coverage. 3) Follow appearance of leg and respiratory symptoms. Subjective: Patient states that his leg is decreased in size and the redness is fading. Not much respiratory complaint. No coughing. No fevers. Objective: Zosyn # 3 Azithromycin # 3 Vital Signs Temp Pulse Resp BP Pulse Ox 36.9 C 86 12 159/97 H 96 03/15/17 15:21 03/15/17 15:21 03/15/17 15:21 03/15/17 15:21 03/15/17 15:21 Microbiology 03/13/17 10:00 Gram Stain - Final Leg - Swab Laboratory Results 03/15/17 06:00 03/15/17 06:00 03/14/17 03/15/17 03/16/17 05:59 05:59 05:59 Intake Total 3986 2038 Output Total 7181 600 Balance -5514 1438 - Physical Exam General Appearance: WD/WN, alert, no apparent distress, non-toxic Respiratory: lungs clear, normal breath sounds, No respiratory distress Cardiac/Chest: regular rate, rhythm, No tachycardia Extremities: non-tender, pedal edema, inflammation, erythema, No normal inspection Skin: normal color, warm/dry, No rash Neuro/Psych: alert, normal mood/affect, oriented x 3 ICD10 Worksheet Patient Problems: Problems Problem Status Onset Alcohol intoxication Acute Alcohol withdrawal Acute Cellulitis of right leg Acute Alcohol intoxication Acute Atrial fibrillation Acute Kidney laceration, right Acute Pneumothorax, right Acute Pulmonary contusion Acute Ribs, multiple fractures Acute Tibia and fibula open fracture, right Acute
[2017-03-15] MEDS: VODKA 50 ML BOTTLE PO SCH ×2 (17:21→22:13)
[2017-03-16] MEDS: PIPERACILLIN/TAZO 4.5 GM/DEX 100 ML IV SCH ×3 (02:53→18:36)
[2017-03-16 04:42] LABS: IONIZED CALCIUM 1.11 MMOL/L (1.12-1.30)
[2017-03-16 05:12] LABS: MAGNESIUM 1.9 mg/dL (1.6-2.3)
[2017-03-16] MEDS: ALBUTEROL 3 ML DEYVIAL IH SCH ×4 (05:22→21:34)
[2017-03-16] MEDS ORDERED: CALCIUM GLUCONATE 50 ML IV ONE (07:01)
[2017-03-16] MEDS: AZITHROMYCIN IV 500 MG in D5W 250 ML IV SCH (09:22)
[2017-03-16] MEDS: MULTIVITAMINS 1 EACH TAB PO SCH (09:43)
[2017-03-16] MEDS: FOLIC ACID 1 MG TAB PO SCH (09:43)
[2017-03-16] MEDS: METOPROLOL TARTRATE 50 MG TAB PO SCH ×2 (09:43→20:15)
[2017-03-16] MEDS: ASPIRIN 81 MG CHEWABLE TAB PO SCH (09:43)
[2017-03-16] MEDS: LISINOPRIL 20 MG TAB PO SCH ×2 (09:43→20:15)
[2017-03-16] MEDS: THIAMINE HCL 100 MG TAB PO SCH (09:43)
[2017-03-16] MEDS: PANTOPRAZOLE SODIUM 40 MG TAB PO SCH (09:43)
[2017-03-16] MEDS: ENOXAPARIN 40 MG/0.4 ML SYR SC SCH (09:46)
[2017-03-16] MEDS: ACETAMINOPHEN 500 MG TAB PO PRN (09:53)
[2017-03-16] MEDS: VODKA 50 ML BOTTLE PO SCH ×2 (11:13→18:25)
[2017-03-16] MEDS ORDERED: PNEUMOCOCCAL 0.5ML VACCINE VIAL IM ONE (11:51)
--- NOTE | 2017-03-16 13:58 | PCMIDPN ---
Assessment/Plan: Assessment/Plan: 1. SEpsis secondary to bilateral pneumonia and RLE cellulitis: - Cellulitis has improved, only minimal faint erythema now. Still with swelling and multiple skin lesions -Resp sx improving as well. First day off o2. -blood cx ngtd. u. leg neg. -On zosyn + Azithro. d/c azithro after tomorrows dose. -hopefully can transitoin to oral antibiotics soon. Meds zosyn 4.5gm q6 03/13/17 azitrho 03/13/17 Subjective: Feels better. less sputum production. Off o2 at present. denies sob. denies abd pain and diarrhea. Objective: Vital Signs Temp Pulse Resp BP Pulse Ox 36.9 C 75 14 141/97 H 85 L 03/16/17 10:57 03/16/17 11:31 03/16/17 11:31 03/16/17 10:57 03/16/17 13:30 Microbiology 03/13/17 10:00 Gram Stain - Final Leg - Swab Wound Culture - Final Staphylococcus Aureus Streptococcus Pyogenes Grp A Laboratory Results 03/15/17 06:00 03/16/17 04:30 03/15/17 03/16/17 03/17/17 05:59 05:59 05:59 Intake Total 2038 1387 Output Total 600 2325 400 Balance 0092 -881 -931 - Physical Exam General Appearance: alert, no apparent distress Respiratory: coarse breath sounds Cardiac/Chest: regular rate, rhythm Extremities: swelling (rle:) Abdomen: normal bowel sounds, non-tender, soft, No distended Skin: erythema (Mild), other (multiple skin lesions ) ICD10 Worksheet Patient Problems: Problems Problem Status Onset Alcohol intoxication Acute Alcohol withdrawal Acute Cellulitis of right leg Acute Alcohol intoxication Acute Atrial fibrillation Acute Kidney laceration, right Acute Pneumothorax, right Acute Pulmonary contusion Acute Ribs, multiple fractures Acute Tibia and fibula open fracture, right Acute
--- NOTE | 2017-03-16 16:43 | HOSPPROG ---
Hospitalist Progress Note Assessment/Plan: DIAGNOSES: # ACUTE SEPSIS, resolved # BILATERAL COMMUNITY AQUIRED PNEUMONIA, LIKELY SOME IMMUNE SUPPRESSION DUE TO ETOH/NUTRITION # CELLULITIS OF R LEG WITH MULTIPLE OPEN SKIN WOUNDS, BUT NO ABSCESS # MILD ACUTE ALCOHOL WITHDRAWAL SYNDROM RESOLVED # LOW K, MG, CA # ANEMIA THROMBOCYTOPENIA DUE TO ETOH/NUTRITION # SUSPECT VITAMIN DEFICIENCIES # MILD ALCOHOLIC HEPATITIS, NORMAL BILIRUBIN # ALCOHOLISM Improving nicely overall. His leg is again less swollen and less cellulitic. His wounds are still showing no signs of necrosis or abscess. Resp's better and O2 need down PLANS: -continue current abx, follow cultures and clinical course of leg and pneumonia -wound care for leg -resp tx's -continue alcohol, continue CIWA protocol -thiamine -encourage nutrition -PT OT -DVT prophlyaxis -electrolyte replacement -DISPO: anticipate he could DC 03/17 or SUBJECTIVE: feeling better overall no pain in leg or chest very tired and weak and walking still difficult eating ok OBJECTIVE Vitals reviewed: stable no fever, still on some [place] O2 Exam: now wide awake and better oriented no tremor at present, not anxious or confused skin warm dry color ok resps not labored lungs clear but very diminished BSs heart regular abd soft nondistended nontender, bowel sounds present limbs R leg with less edema and erythema but remains quite swollen, several deep abrasions but no fluctuance or drainage, no necrosis iv site ok Objective: Vital Signs Temp Pulse Resp BP Pulse Ox 36.8 C 76 16 144/89 H 95 03/16/17 14:52 03/16/17 16:20 03/16/17 16:20 03/16/17 14:52 03/16/17 16:20 Microbiology 03/13/17 10:00 Gram Stain - Final Leg - Swab Wound Culture - Final Staphylococcus Aureus Streptococcus Pyogenes Grp A Laboratory Results 03/15/17 06:00 03/16/17 04:30 03/15/17 03/16/17 03/17/17 06:59 06:59 06:59 Intake Total 2038 1387 405 Output Total 600 2325 400 Balance 1438 -938 5 PT 15.8 SEC (12.0-15.0) H 03/13/17 05:25 INR 1.26 (0.83-1.16) H 03/13/17 05:25 ICD10 Worksheet Patient Problems: Problems Problem Status Onset Alcohol intoxication Acute Alcohol withdrawal Acute Cellulitis of right leg Acute Alcohol intoxication Acute Atrial fibrillation Acute Kidney laceration, right Acute Pneumothorax, right Acute Pulmonary contusion Acute Ribs, multiple fractures Acute Tibia and fibula open fracture, right Acute
[2017-03-16 18:40] LABS: POTASSIUM 3.7 mEq/L (3.5-5.2)
[2017-03-16] MEDS ORDERED: POTASSIUM CL 10 MEQ TAB PO ONE (20:07)
[2017-03-16] MEDS: LORazepam 2 MG/ML INJ IVP PRN (22:55)
[2017-03-17] MEDS: PIPERACILLIN/TAZO 4.5 GM/DEX 100 ML IV SCH ×2 (03:28→11:12)
[2017-03-17 05:11] LABS: IONIZED CALCIUM 1.13 MMOL/L (1.12-1.30)
[2017-03-17] MEDS: ALBUTEROL 3 ML DEYVIAL IH SCH ×4 (05:15→20:50)
[2017-03-17 05:29] LABS: POTASSIUM 4.2 mEq/L (3.5-5.2)
--- NOTE | 2017-03-17 08:46 | HOSPPROG ---
Hospitalist Progress Note Assessment/Plan: # ACUTE SEPSIS, resolved # BILATERAL COMMUNITY AQUIRED PNEUMONIA, LIKELY SOME IMMUNE SUPPRESSION DUE TO ETOH/NUTRITION # CELLULITIS OF R LEG WITH MULTIPLE OPEN SKIN WOUNDS, BUT NO ABSCESS # MILD ACUTE ALCOHOL WITHDRAWAL SYNDROM RESOLVED # LOW K, MG, CA # ANEMIA THROMBOCYTOPENIA DUE TO ETOH/NUTRITION # SUSPECT VITAMIN DEFICIENCIES # MILD ALCOHOLIC HEPATITIS, NORMAL BILIRUBIN # ALCOHOLISM Objective: Vital Signs Temp Pulse Resp BP Pulse Ox 36.7 C 100 18 124/75 H 95 03/17/17 04:00 03/17/17 04:00 03/17/17 04:00 03/17/17 04:00 03/17/17 04:00 Microbiology 03/13/17 10:00 Gram Stain - Final Leg - Swab Wound Culture - Final Staphylococcus Aureus Streptococcus Pyogenes Grp A Laboratory Results 03/15/17 06:00 03/17/17 05:00 03/16/17 03/17/17 03/18/17 05:59 05:59 05:59 Intake Total 1387 1355 Output Total 2325 1100 Balance -938 255 PT 15.8 SEC (12.0-15.0) H 03/13/17 05:25 INR 1.26 (0.83-1.16) H 03/13/17 05:25 ICD10 Worksheet Patient Problems: Problems Problem Status Onset Alcohol intoxication Acute Alcohol withdrawal Acute Cellulitis of right leg Acute Alcohol intoxication Acute Atrial fibrillation Acute Kidney laceration, right Acute Pneumothorax, right Acute Pulmonary contusion Acute Ribs, multiple fractures Acute Tibia and fibula open fracture, right Acute
--- NOTE | 2017-03-17 08:53 | HOSPPROG ---
Hospitalist Progress Note Assessment/Plan: Patient is a 31 y/o male w chronic alcohol use, h/o afib, flutter, hypertension and obesity who presented to the ER with RLE cellulitis. He was accompanited by the police. He was noted to have a bilateral lobe pna. Today is my first encounter with the patient/ chart reviewed. Reviewed his care with Dr Reed. *sepsis 2/2 bilateral pna and RLE celluliits Zosyn + azithro *Bilater lobe pna on the above * RLE cellulitis/has hardware in place likely to get imaging today *Acute respiratory failure on 1.5 liters today *alcohol withdrawal syndrome resolved alcohol level on admit was >400 *electrolyte abnormalities being treateed *anemia repeat labs *alcoholism *mild alcoholic hepatitis repeat labs tomorrow *Plan: imaging today/ labs for tomorrow Subjective: Shahzad is feeling better/ ambulating w PT and is getting stronger. Objective: Vital Signs Temp Pulse Resp BP Pulse Ox 36.7 C 100 18 124/75 H 95 03/17/17 04:00 03/17/17 04:00 03/17/17 04:00 03/17/17 04:00 03/17/17 04:00 Microbiology 03/13/17 10:00 Gram Stain - Final Leg - Swab Wound Culture - Final Staphylococcus Aureus Streptococcus Pyogenes Grp A Laboratory Results 03/15/17 06:00 03/17/17 05:00 03/16/17 03/17/17 03/18/17 05:59 05:59 05:59 Intake Total 1387 1355 Output Total 2325 1100 Balance -938 255 PT 15.8 SEC (12.0-15.0) H 03/13/17 05:25 INR 1.26 (0.83-1.16) H 03/13/17 05:25 - Physical Exam Constitutional: appears nourished, not in pain, chronically ill appearing Eyes: PERRL Ears, Nose, Mouth, Throat: hearing normal Cardiovascular: regular rate and rhythym Respiratory: no respiratory distress, reduced air movement (bibasilar) Skin: warm Musculoskeletal: full muscle strength Neurologic: AAOx3 Psychiatric: interacting appropriately, not anxious ICD10 Worksheet Patient Problems: Problems Problem Status Onset Alcohol intoxication Acute Alcohol withdrawal Acute Cellulitis of right leg Acute Alcohol intoxication Acute Atrial fibrillation Acute Kidney laceration, right Acute Pneumothorax, right Acute Pulmonary contusion Acute Ribs, multiple fractures Acute Tibia and fibula open fracture, right Acute
[2017-03-17] MEDS: AZITHROMYCIN IV 500 MG in D5W 250 ML IV SCH (09:39)
[2017-03-17] MEDS: PANTOPRAZOLE SODIUM 40 MG TAB PO SCH (09:39)
[2017-03-17] MEDS: MULTIVITAMINS 1 EACH TAB PO SCH (09:39)
[2017-03-17] MEDS: FOLIC ACID 1 MG TAB PO SCH (09:39)
[2017-03-17] MEDS: LISINOPRIL 20 MG TAB PO SCH ×2 (09:39→21:12)
[2017-03-17] MEDS: ASPIRIN 81 MG CHEWABLE TAB PO SCH (09:39)
[2017-03-17] MEDS: METOPROLOL TARTRATE 50 MG TAB PO SCH ×2 (09:39→21:12)
[2017-03-17] MEDS: THIAMINE HCL 100 MG TAB PO SCH (09:39)
[2017-03-17] MEDS: ENOXAPARIN 40 MG/0.4 ML SYR SC SCH (09:39)
[2017-03-17] MEDS: VODKA 50 ML BOTTLE PO SCH ×2 (12:20→18:12)
[2017-03-17] MEDS ORDERED: CALCIUM GLUCONATE 50 ML IV ONE (13:37)
--- NOTE | 2017-03-17 16:18 | PCMIDPN ---
Assessment/Plan: Assessment/Plan: * Sepsis due to bilateral pneumonia and right lower extremity cellulitis: Significant clinical improvement. Cellulitis largely resolved over right lower extremity. Reviewed with patient who notes that all wounds are new after fall. He states that prior wound had completely healed making involvement of hardware less likely. Respiratory findings significantly improved. Will transition Zosyn to ceftriaxone which will cover both MSSA and group a Streptococcus as well as community-acquired pneumonia. Now has completed 5 days of azithromycin for community-acquired pneumonia which will be discontinued. Likely can be discharged soon with oral therapy such as Augmentin to complete total 10 days of antibiotics. Will review with case management if he is eligible for respite housing prior to his planned return to [place]. 03/17/17 16:15 Subjective: Feels much better. Reviewed with patient regarding lower extremity wounds and he notes these are all new after fall. He states that prior wound had completely closed. Cough and shortness of breath both improved. He is planning to return to [place] on Wednesday. Objective: Vital Signs Temp Pulse Resp BP Pulse Ox 36.6 C 84 18 142/93 H 92 03/17/17 11:47 03/17/17 11:47 03/17/17 11:47 03/17/17 11:47 03/17/17 11:47 Laboratory Results 03/15/17 06:00 03/17/17 05:00 03/16/17 03/17/17 03/18/17 05:59 05:59 05:59 Intake Total 1387 1355 Output Total 2325 1100 Balance -938 255 Zosyn # 5 Azithromycin # 5 Blood cultures x2 no growth - Physical Exam General Appearance: alert, no apparent distress EENT: No scleral icterus, No thrush Respiratory: other (Decreased breath sounds bilateral bases), No respiratory distress Cardiac/Chest: regular rate, rhythm Extremities: inflammation (Right lower extremity with eschars all denuded and erythema largely resolved around each eschar) Abdomen: non-tender, No distended ICD10 Worksheet Patient Problems: Problems Problem Status Onset Alcohol intoxication Acute Alcohol withdrawal Acute Cellulitis of right leg Acute Alcohol intoxication Acute Atrial fibrillation Acute Kidney laceration, right Acute Pneumothorax, right Acute Pulmonary contusion Acute Ribs, multiple fractures Acute Tibia and fibula open fracture, right Acute
[2017-03-17] MEDS: cefTRIAXone 2 GM in D5W 50 ML IV SCH (18:14)
[2017-03-17] MEDS: LORazepam 2 MG/ML INJ IVP PRN (21:12)
[2017-03-18 04:38] LABS: % IMMATURE GRANULYOCYTES 0.9 % (0.0-1.1); ABSOLUTE IMMATURE GRANULOCYTES 0.05 10^3/uL (0.00-0.10); ADD DIFF? NO; ADD MORPH? NO; ADD SCAN? NO; ATYPICAL LYMPHOCYTE FLAG 30 (0-99); FRAGMENT RBC FLAG 0 (0-99); HEMATOCRIT 37.8 % (40.0-51.0); HEMOGLOBIN 11.8 g/dL (13.7-17.5); IONIZED CALCIUM 1.15 MMOL/L (1.12-1.30); LEFT SHIFT FLG 10 (0-99); LIPEMIA HEMOLYSIS FLAG 80 (0-99); MEAN CELL HEMOGLOBIN 29.7 pg (27.9-34.1); MEAN CELL HEMOGLOBIN CONCENTR. 31.2 g/dL (32.4-36.7); MEAN CELL VOLUME 95.2 fL (81.5-99.8); MEAN PLATELET VOLUME 9.1 fL (8.7-11.7); PLATELET CLUMPS FLAG 0 (0-99); PLATELET COUNT 229 10^3/uL (150-400); RED BLOOD CELL COUNT 3.97 10^6/uL (4.40-6.38); RED CELL DISTRIBUTION WIDTH 18.4 % (11.5-15.2)
[2017-03-18] MEDS: ALBUTEROL 3 ML DEYVIAL IH SCH ×4 (04:57→21:21)
[2017-03-18 05:05] LABS: ALANINE AMINOTRANSFERASE 44 IU/L (21-72); ALBUMIN 2.8 g/dL (3.5-5.0); ALKALINE PHOSPHATASE 130 IU/L (38-126); ANION GAP 6 mEq/L (8-16); ASPARTATE AMINOTRANSFERASE 35 IU/L (17-59); CALCIUM 8.3 mg/dL (8.5-10.4); CARBON DIOXIDE 24 mEq/l (22-31); CHLORIDE 107 mEq/L (97-110); CREATININE 0.6 mg/dL (0.7-1.3); GLOMERULAR FILTRATION RATE > 60; GLUCOSE 95 mg/dL (70-100); MAGNESIUM 1.9 mg/dL (1.6-2.3); POTASSIUM 3.9 mEq/L (3.5-5.2); SODIUM 137 mEq/L (134-144); TOTAL PROTEIN 6.9 g/dL (6.3-8.2)
[2017-03-18] MEDS ORDERED: POTASSIUM CL 10 MEQ TAB PO ONE (08:27)
[2017-03-18] MEDS: PANTOPRAZOLE SODIUM 40 MG TAB PO SCH (08:35)
[2017-03-18] MEDS: MULTIVITAMINS 1 EACH TAB PO SCH (08:35)
[2017-03-18] MEDS: FOLIC ACID 1 MG TAB PO SCH (08:35)
[2017-03-18] MEDS: METOPROLOL TARTRATE 50 MG TAB PO SCH ×2 (08:35→20:38)
[2017-03-18] MEDS: LISINOPRIL 20 MG TAB PO SCH ×2 (08:35→20:37)
[2017-03-18] MEDS: ASPIRIN 81 MG CHEWABLE TAB PO SCH (08:35)
[2017-03-18] MEDS: ENOXAPARIN 40 MG/0.4 ML SYR SC SCH (08:35)
[2017-03-18] MEDS: THIAMINE HCL 100 MG TAB PO SCH (08:35)
[2017-03-18] MEDS: cefTRIAXone 2 GM in D5W 50 ML IV SCH (08:36)
[2017-03-18] MEDS: VODKA 50 ML BOTTLE PO SCH ×2 (12:11→17:52)
--- NOTE | 2017-03-18 12:28 | HOSPPROG ---
Hospitalist Progress Note Assessment/Plan: Patient is a 31 y/o male w chronic alcohol use, h/o afib, flutter, hypertension and obesity who presented to the ER with RLE cellulitis. He was brought in by the police. He was noted to have a bilateral lobe pna. Today is my first encounter with the patient/ chart reviewed. Reviewed his care with Dr Reed. *sepsis 2/2 bilateral pna and RLE celluliits was on Zosyn + azithro completed 5 days azithro, DC change to CTX can transition soon to PO Augmentin for total of 10 days abx *Bilater lobe pna per above * RLE cellulitis/has hardware in place no need for imaging *Acute respiratory failure room air *alcohol withdrawal syndrome resolved alcohol level on admit was >400 *electrolyte abnormalities being treated *anemia repeat labs stable *alcoholism *mild alcoholic hepatitis repeat labs improving *Plan:cont supportive care with IV abx Sister is coming from out of state on Wednesday Will plan for possible DC then on PO abx Subjective: Up in the chair. Feeling well. Still having some leg pain. No other issues. Objective: Vital Signs Temp Pulse Resp BP Pulse Ox 36.6 C 78 14 129/82 H 90 L 03/18/17 07:58 03/18/17 09:29 03/18/17 09:29 03/18/17 07:58 03/18/17 09:29 Laboratory Results 03/18/17 04:30 03/18/17 04:30 03/17/17 03/18/17 03/19/17 05:59 05:59 05:59 Intake Total 1355 450 Output Total 1100 650 650 Balance 255 -200 -650 PT 15.8 SEC (12.0-15.0) H 03/13/17 05:25 INR 1.26 (0.83-1.16) H 03/13/17 05:25 - Physical Exam Constitutional: no apparent distress, appears nourished, uncomfortable Eyes: PERRL, anicteric sclera, EOMI Ears, Nose, Mouth, Throat: moist mucous membranes, hearing normal, ears appear normal Cardiovascular: No JVD, No tachycardia, No edema Respiratory: no respiratory distress, no rales or rhonchi, reduced air movement Gastrointestinal: No tenderness, No ascites, No guarding Skin: warm, abrasion, erythema Musculoskeletal: normal joint ROM, no joint effusions, generalized weakness Neurologic: AAOx3 Psychiatric: not anxious, not encephalopathic, poor insight, poor judgement ICD10 Worksheet Patient Problems: Problems Problem Status Onset Pneumothorax, right Acute Pulmonary contusion Acute Ribs, multiple fractures Acute Kidney laceration, right Acute Tibia and fibula open fracture, right Acute Atrial fibrillation Acute Alcohol intoxication Acute Cellulitis of right leg Acute Alcohol intoxication Acute Alcohol withdrawal Acute
--- NOTE | 2017-03-18 16:37 | PCMIDPN ---
Assessment/Plan: Assessment: sepsis due to RLE cellulitis as well as pneumonia. Group A strep and MSSA on leg wound culture. Covered with ceftriaxone alone. Right leg clearly is vastly improved. Plan to continue the IV ceftriaxone until Wednesday then upon his discharge transition him over to oral Keflex for completion of a 2 week course. Plan: 1) Continue ceftriaxone for cellulitis of lower extremity and pneumonia coverage. 2) Follow appearance of leg and respiratory symptoms. Plan to transition patient to oral Keflex upon discharge. 03/18/17 18:18 Subjective: Patient is resting in his hospital bed. He is talking with a visitor. He states that things are getting better every day. Right lower extremity is much less swollen. Not painful. Breathing very well. No longer needs supplemental oxygen. No fevers. Tolerating antibiotics without issue Objective: Ceftriaxone # 2 Vital Signs Temp Pulse Resp BP Pulse Ox 37.2 C 94 18 124/87 H 93 03/18/17 16:00 03/18/17 16:00 03/18/17 16:00 03/18/17 16:00 03/18/17 16:00 Laboratory Results 03/18/17 04:30 03/18/17 04:30 03/17/17 03/18/17 03/19/17 05:59 05:59 05:59 Intake Total 1355 450 Output Total 1100 650 650 Balance 255 -200 -650 - Physical Exam General Appearance: WD/WN, alert, no apparent distress, non-toxic Respiratory: lungs clear, normal breath sounds, No respiratory distress Cardiac/Chest: regular rate, rhythm, No tachycardia Extremities: non-tender, normal inspection, No inflammation, No swelling Skin: normal color, warm/dry, No rash Neuro/Psych: alert, normal mood/affect, oriented x 3 ICD10 Worksheet Patient Problems: Problems Problem Status Onset Alcohol intoxication Acute Alcohol withdrawal Acute Cellulitis of right leg Acute Alcohol intoxication Acute Atrial fibrillation Acute Kidney laceration, right Acute Pneumothorax, right Acute Pulmonary contusion Acute Ribs, multiple fractures Acute Tibia and fibula open fracture, right Acute
[2017-03-18] MEDS: LORazepam 2 MG/ML INJ IVP PRN (22:33)
[2017-03-19] MEDS: ALBUTEROL 3 ML DEYVIAL IH SCH ×4 (05:43→22:54)
[2017-03-19] MEDS: METOPROLOL TARTRATE 50 MG TAB PO SCH ×2 (09:49→20:20)
[2017-03-19] MEDS: ENOXAPARIN 40 MG/0.4 ML SYR SC SCH (09:50)
[2017-03-19] MEDS: PANTOPRAZOLE SODIUM 40 MG TAB PO SCH (09:50)
[2017-03-19] MEDS: THIAMINE HCL 100 MG TAB PO SCH (09:50)
[2017-03-19] MEDS: FOLIC ACID 1 MG TAB PO SCH (09:50)
[2017-03-19] MEDS: LISINOPRIL 20 MG TAB PO SCH ×2 (09:50→20:22)
[2017-03-19] MEDS: cefTRIAXone 2 GM in D5W 50 ML IV SCH (09:50)
[2017-03-19] MEDS: ASPIRIN 81 MG CHEWABLE TAB PO SCH (09:50)
[2017-03-19] MEDS: MULTIVITAMINS 1 EACH TAB PO SCH (09:50)
--- NOTE | 2017-03-19 10:09 | PCMIDPN ---
Assessment/Plan: # right lower extremity cellulitis s/p fall, culture show MSSA and group a strep. Minimal residual erythema. Some mild induration around largest wound left upper lateral cabrera. AF since admit. WBC normalized -- plan to continue IV antibiotics through Wednesday -- educated patient that can start Keflex 500mg PO QID on Wednesday for 7 more days -- follow up with Dr. Loco 03/25 1300 -- call ID for further questions meds Ceftriaxone 1gm IV daily #3 Subjective: feeling well still with some pain RLE Objective: Vital Signs Temp Pulse Resp BP Pulse Ox 37.1 C 81 18 134/89 H 90 L 03/19/17 07:52 03/19/17 09:49 03/19/17 07:52 03/19/17 09:50 03/19/17 07:52 Laboratory Results 03/18/17 04:30 03/18/17 04:30 03/18/17 03/19/17 03/20/17 05:59 05:59 05:59 Intake Total 450 150 Output Total 650 650 Balance -200 -500 - Physical Exam General Appearance: alert, no apparent distress, non-toxic EENT: poor dentition, No scleral icterus Respiratory: lungs clear, No accessory muscle use Neck: supple Cardiac/Chest: regular rate, rhythm Extremities: inflammation (RLE around larger wound R lateral upper cabrera), other (multiple wounds from fall RLE; no warmth or erythema remains), No swelling Skin: No rash Neuro/Psych: alert, normal mood/affect, oriented x 3 - Line/s RUE PICC Lines: No drainage, No erythema ICD10 Worksheet Patient Problems: Problems Problem Status Onset Alcohol intoxication Acute Alcohol withdrawal Acute Cellulitis of right leg Acute Alcohol intoxication Acute Atrial fibrillation Acute Kidney laceration, right Acute Pneumothorax, right Acute Pulmonary contusion Acute Ribs, multiple fractures Acute Tibia and fibula open fracture, right Acute
--- NOTE | 2017-03-19 11:36 | HOSPPROG ---
Hospitalist Progress Note Assessment/Plan: Patient is a 31 y/o male w chronic alcohol use, h/o afib, flutter, hypertension and obesity who presented to the ER with RLE cellulitis. He was brought in by the police. He was noted to have a bilateral lobe pna. *sepsis 2/2 bilateral pna and RLE celluliits was on Zosyn + azithro completed 5 days azithro, DC change to CTX *Bilater lobe pna per above * RLE cellulitis/has hardware in place no need for imaging s/p fall, culture show MSSA and group a strep Minimal residual erythema continue IV antibiotics through Wednesday start Keflex 500mg PO QID on Wednesday for 7 more days follow up with Dr. Loco 03/25 1300 *Acute respiratory failure room air *alcohol withdrawal syndrome resolved on BID vodka alcohol level on admit was >400 *electrolyte abnormalities resolved *anemia repeat labs stable *alcoholism *mild alcoholic hepatitis repeat labs improving *Plan:cont supportive care with IV abx Sister is coming from out of state on Wednesday Will plan for possible DC then on PO abx Subjective: Feeling well. Eating well. No pain currently. Objective: Vital Signs Temp Pulse Resp BP Pulse Ox 37.1 C 74 14 134/89 H 97 03/19/17 07:52 03/19/17 10:33 03/19/17 10:33 03/19/17 09:50 03/19/17 10:33 Laboratory Results 03/18/17 04:30 03/18/17 04:30 03/18/17 03/19/17 03/20/17 05:59 05:59 05:59 Intake Total 450 150 Output Total 650 650 Balance -200 -500 PT 15.8 SEC (12.0-15.0) H 03/13/17 05:25 INR 1.26 (0.83-1.16) H 03/13/17 05:25 - Physical Exam Constitutional: no apparent distress, appears nourished, not in pain Eyes: PERRL, anicteric sclera, EOMI Ears, Nose, Mouth, Throat: moist mucous membranes, hearing normal, ears appear normal Cardiovascular: No JVD, No tachycardia, No edema Respiratory: no respiratory distress, no rales or rhonchi, reduced air movement Gastrointestinal: No tenderness, No ascites, No guarding Skin: warm, erythema, No mottled Musculoskeletal: no joint effusions, muscular tenderness, generalized weakness Neurologic: AAOx3 Psychiatric: not anxious, not encephalopathic, poor insight, poor judgement, poor memory ICD10 Worksheet Patient Problems: Problems Problem Status Onset Pneumothorax, right Acute Pulmonary contusion Acute Ribs, multiple fractures Acute Kidney laceration, right Acute Tibia and fibula open fracture, right Acute Atrial fibrillation Acute Alcohol intoxication Acute Cellulitis of right leg Acute Alcohol intoxication Acute Alcohol withdrawal Acute
[2017-03-19] MEDS: VODKA 50 ML BOTTLE PO SCH ×2 (12:41→17:31)
[2017-03-19] MEDS: LORazepam 2 MG/ML INJ IVP PRN (23:39)
[2017-03-20] MEDS: ALBUTEROL 3 ML DEYVIAL IH SCH ×2 (05:45→09:52)
[2017-03-20] MEDS: cefTRIAXone 2 GM in D5W 50 ML IV SCH (08:14)
[2017-03-20] MEDS: PANTOPRAZOLE SODIUM 40 MG TAB PO SCH (08:18)
[2017-03-20] MEDS: ASPIRIN 81 MG CHEWABLE TAB PO SCH (08:18)
[2017-03-20] MEDS: THIAMINE HCL 100 MG TAB PO SCH (08:18)
[2017-03-20] MEDS: LISINOPRIL 20 MG TAB PO SCH (08:20)
[2017-03-20] MEDS: MULTIVITAMINS 1 EACH TAB PO SCH (08:20)
[2017-03-20] MEDS: FOLIC ACID 1 MG TAB PO SCH (08:20)
[2017-03-20] MEDS: METOPROLOL TARTRATE 50 MG TAB PO SCH (08:20)
[2017-03-20] MEDS: ENOXAPARIN 40 MG/0.4 ML SYR SC SCH (08:20)
[2017-03-20 08:48] VITALS: BP 123/85; PULSE 92; RESP 14; TEMP 98.5; O2SAT 90
--- NOTE | 2017-03-20 09:47 | GDS ---
[f rep st] DISCHARGE SUMMARY DISCHARGE DIAGNOSES: 1. Sepsis from right lower extremity cellulitis, versus pneumonia. 2. Bilateral pneumonia. 3. Right lower extremity cellulitis, showing Methicillin-Sensitive Staphylococcus Aureus and group A strep. 4. Acute respiratory failure, now on room air. 5. Acute alcohol withdrawal, p.o. b.i.d. vodka on this admission. 6. Stable anemia likely secondary to bone marrow suppression from alcoholism. 7. Paroxysmal atrial fibrillation versus flutter, currently in a regular rhythm. 8. History of hypertension. CONSULTATIONS: Infectious Disease. HISTORY OF PRESENT ILLNESS: The patient is a 31-year-old male, brought in by the police. When he w as at the [facility], he was noted to have erythema in his lower extremity. On admission, he was found to have bilateral lower lobe pneumonia, as well as a right lower extremity cellulitis, with history of internal fixation of the tibia with a long metal allyson. HOSPITAL COURSE BY PROBLEM: 1. Sepsis. He developed fever and hypoxia in the emergency department. He was started on Zosyn an d azithromycin, which he has completed. He has been changed to ceftriaxone and had his last day of IV antibiotics today. He is being switched to Keflex 500 q.i.d. for 7 more days. 2. Bilateral lower lobe pneumonia. His chest x-ray has improved. He is saturating well on room ai r. 3. Right lower extremity cellulitis and leg with known hardware. He is status post fall. Cultures have shown MSSA and group A strep. He is planning to move back to [place], as his family is a rriving to get him today. However, if he still in town on March 25, he will need follow up with Dr. Loco. Otherwise, he will follow up with [facility] in [place]. 4. Acute respiratory failure. He was on 15 L by [employer] when he arrived. He is now satting well on room air. 5. Alcohol withdrawal syndrome. He has been placed on folic acid, thiamine and multivitamin. He h as been on b.i.d. vodka as well. 6. Electrolyte abnormalities. This has resolved. 7. Anemia. He has repeat labs that have been stable. 8. Alcoholism. We discussed need for cessation. He states that he will get follow up for this in [place]. 9. Tobacco abuse. He is counseled on cessation. 10. LFT derangements, likely alcoholic hepatitis, this has normalized on day of discharge. PHYSICAL EXAM: VITAL SIGNS: On day of discharge, blood pressure 123/85, heart rate 92, O2 saturation 90% on room air, temp of 98.5 degrees Fahrenheit. Respirations 14. GENERAL: A pleas ant male, in no apparent distress. HEART: Regular rate and rhythm. LUNGS: Clear to auscultation bilaterally. EXTREMITIES: Right lower extremity with dressings apparent on his knee, as well as an terior cabrera. There is some erythema and mild edema. LABORATORY DATA: CBC with WBC 5.58, hemoglobin 11.8, hematocrit 37.8, platelet count of 229. BMP w ith sodium 137, potassium 3.9, chloride 107, CO2 24, BUN 12, creatinine 0.6, glucose of 95, AST 35, ALT 44, alk phos of 130. Albumin of 2.8. RESULTS PENDING: None. DIET: Per previous. ACTIVITY: As tolerated. DISCHARGE MEDICATION: His home aspirin and lisinopril have been continued. He is being given a pre scription for Keflex for 500 mg p.o. q.i.d. for 7 days. He is to start tomorrow, Wednesday, March 21. He is being given recommendations to get [id number] thiamine, folic acid, and multivitamins. FOLLOWUP: 1. Follow up with Dr. Loco next week. 2. Alcohol cessation. 3. Smoking cessation. Please note that greater than 30 minutes was spent on discharge and coordination of care. /[id number]/MODL
[2017-03-20] MEDS: VODKA 50 ML BOTTLE PO SCH (11:54)
== END 2017-03-20 15:19 | disposition home or self-care (01) | DRG 871 ==
LOC: EDUNIT# → OBSVTOIN 03-13 00:25 → F2N 03-13 04:10 → F3E 03-15 15:14
PROVIDERS: ADMIT Internal Medicine; ATTEND Internal Medicine
PROC: 02HV33Z Insertion of Infusion Device into Superior Vena Cava, Percutaneous Approach (ICD-10-PCS; principal; 2017-03-13)
DX: A41.01 Sepsis due to Methicillin susceptible Staphylococcus aureus (principal); J18.9 Pneumonia, unspecified organism; J96.00 Acute respiratory failure, unspecified whether with hypoxia or hypercapnia; L03.115 Cellulitis of right lower limb; F10.239 Alcohol dependence with withdrawal, unspecified; D64.9 Anemia, unspecified; F10.229 Alcohol dependence with intoxication, unspecified; I48.0 Paroxysmal atrial fibrillation; I10 Essential (primary) hypertension; Y90.8 Blood alcohol level of 240 mg/100 ml or more; E66.9 Obesity, unspecified; E87.6 Hypokalemia; E83.51 Hypocalcemia; Z72.0 Tobacco use; Z59.0 Homelessness; Z23 Encounter for immunization
CPT/HCPCS: 80307; 87449-90; 92507-GN; 92523-GN; 97116-GP; 97162-GP; C1751; G0009; G0480; J0456; J0610; J0696; J1650; J2060; J2543; J2997; J3370; J3411; J3475; Q9967